=== PATIENT | male | born 1940 | race Caucasian/White ===

== ENCOUNTER 2019-01-18 19:37 | Observation (INO) ==
[2019-01-18] MEDS ORDERED: Aspirin 81 MG TAB.CHEW PO ONE (19:43)
[2019-01-18 20:06] LABS: Basophils % 0.2 %; Eosinophils # 0.1 K/mcL (0.0-0.6); Eosinophils % 1.6 %; Hematocrit 41.4 % (37.5-50.1); Hemoglobin 14.5 g/dL (12.9-16.9); Immature Granulocytes % 0.5 % (0-4); Lymphocytes # 2.3 K/mcL (0.6-4.6); Lymphocytes % 25.6 %; Mean Corpuscular Hemoglobin 30.3 pg (28.0-33.3); Mean Corpuscular Volume 86.6 fL (83.0-100.0); Mean Platelet Volume 8.6 fL (9.4-12.4); Monocytes # 0.9 K/mcL (0.0-1.3); Monocytes % 9.8 %; Neutrophils # 5.5 K/mcL (1.6-8.9); Platelet Count 176 K/mcL (140-400); Red Blood Count 4.78 M/mcL (4.19-5.50); Red Cell Distribution Width 12.8 % (11.5-14.5); Segmented Neutrophils % 62.3 %
[2019-01-18 20:14] LABS: Prothrombin Time 11.2 Seconds (9.4-12.1)
[2019-01-18 20:28] LABS: BUN/Creatinine Ratio 17 (6-26); Blood Urea Nitrogen 26 mg/dL (8-23); Calcium 9.5 mg/dL (8.6-10.3); Carbon Dioxide 21 mEq/L (23-29); Chloride 106 mEq/L (98-107); Glucose 109 mg/dL (70-105); Osmolality,Calculated 295 (280-300); Potassium 3.7 mEq/L (3.5-5.1); Sodium 140 mEq/L (136-145); eGFR For Non-African Americans 43 (> 60)
[2019-01-18 20:29] LABS: Troponin I < 0.03 ng/mL (< 0.04)
--- NOTE | 2019-01-18 20:55 | Emergency Department Note ---
Disposition Clinical Impression: Unstable angina Disposition: Admitted As Inpatient Condition: Fair Referrals: Rubens Churchill MD [Primary Care Provider] - Time of Disposition: 20:56 Chest Pain HPI - General Chief Complaint: ED Chest Pain Stated Complaint: Chest pain Time Seen by Provider: 01/18/19 19:42 Source: EMS Mode of arrival: ambulatory Limitations: no limitations Vital Signs Reviewed: Yes Nursing Notes Reviewed: Yes - History of Present Illness HPI Narrative: 78-year-old male presents to the emergency department complaining of chest pain. Does have history of ACS where he had a right coronary stent placed and [place] approximate one month ago. There is a tried to stand him here but were unable to due to not having the correct supplies and ability to be older do it here. He presented there with shortness of breath at that time. Today he s aid he got a sudden onset of substernal chest pain that began partially one hour prior to his arrival. He said he was mildly short of breath but that went away. Described the pain is 6 out of 10 throbbing chest pain radiating to his left arm. He said he did not exert himself he does not know if it is worse with exertion. He was not diaphoretic had mild nausea but no vomiting. Patient has had no fevers cough congestion. Otherwise there is no other complaints at this time. Severity scale (1-10): 1 - Related Data Home Medications Medication Instructions Recorded Confirmed DULoxetine [Cymbalta] 30 mg PO DAILY 10/23/16 12/02/18 Lisinopril [Zestril] 5 mg PO DAILY 10/23/16 12/02/18 Tramadol HCl [Ultram] 50 mg PO Q6H PRN 10/23/16 12/02/18 Aspirin [Lo-Dose Aspirin EC] 81 mg PO DAILY 08/16/18 12/02/18 Atorvastatin Calcium [Lipitor] 20 mg PO DAILY 11/08/18 12/02/18 Terazosin [Hytrin] 5 mg PO HS 11/08/18 12/02/18 Metoprolol Tartrate [Lopressor] 12.5 mg PO DAILY 11/13/18 12/10/18 PARoxetine HCl [Paroxetine HCl] 10 mg PO DAILY 11/13/18 12/02/18 Clopidogrel [Plavix] 75 mg PO DAILY 12/02/18 12/02/18 Magnesium Oxide [Magnesium] 250 mg PO DAILY 12/02/18 12/02/18 Nitroglycerin [Nitrostat] 0.4 mg SL PRN PRN 12/02/18 12/02/18 Allergies Allergy/AdvReac Type Severity Reaction Status Date / Time NSAIDS (Non-Steroidal AdvReac See Verified 11/13/18 08:42 Anti-Inflamma Comments All systems ED: reviewed and negative except as stated. Review of Systems: As Per HPI Chest Pain PMH - Past Medical History Medical history: Reports: arthritis, coronary artery disease, GERD, hyperlipidemia, hypertension, kidney stones, renal disease Surgical history: Reports: appendectomy, other Psychiatric history: Reports: no psych history - Social History Smoking Status: Former smoker Alcohol use: Reports: none Drug use: Reports: none Physical Exam - General Limitations: no limitations General appearance: alert - Head Head exam: atraumatic, normocephalic, normal inspection - Eye Eye exam: Present: normal appearance, PERRL, EOMI - ENT ENT exam: normal exam, normal oropharynx, mucous membranes moist - Neck Neck exam: Present: normal inspection, full ROM, trachea midline - Chest Chest inspection: Present: normal inspection, symmetric chest wall rise - Respiratory Respiratory exam: Present: normal lung sounds bilaterally. Absent: respiratory distress, wheezes, stridor, accessory muscle use - Cardiovascular Cardiovascular exam: Present: regular rate, normal rhythm, normal heart sounds - Abdominal Exam Abdominal exam: Present: soft, Non-Tender, normal bowel sounds. Absent: tenderness, distention, guarding, rebound, rigidity - Extremities Exam Extremities exam: Present: normal inspection, full ROM. Absent: tenderness, pedal edema - Back Exam Back exam: Present: normal inspection, full ROM. Absent: tenderness, CVA tenderness (R), CVA tenderness (L) - Neurological Exam Neurological exam: Present: alert, oriented X3 - Skin Skin exam: Present: warm, dry, intact, normal color Course Vital Signs Temperature 97.9 F 01/18/19 19:46 Pulse Rate 65 01/18/19 19:46 Respiratory Rate 18 01/18/19 19:46 Blood Pressure 107/53 01/18/19 19:46 O2 Sat by Pulse Oximetry 98 01/18/19 19:46 Temperature 97.9 F 01/18/19 19:46 Pulse Rate 67 01/18/19 20:18 Respiratory Rate 18 01/18/19 20:18 Blood Pressure 108/77 01/18/19 20:18 O2 Sat by Pulse Oximetry 96 01/18/19 20:18 Oxygen Delivery Oxygen Delivery Room Air Chest Pain - MDM Narrative Medical decision making narrative: Patient's troponin came back negative. EKG had no acute changes per chest x-ray no acute changes. Patient did have elevated creatinine but for around his baseline. Patient does have a heart score of 5 to the elevation in the heart score I feel more control with the patient coming in the hospital and getting further evaluation including possible echocardiogram and stress test. He also had a recent cardiac catheterization done so I think that also warrants admission. Patient did receive nitroglycerin as well as aspirin in the ambulance. He said after 2 nitroglycerin his chest pain was completely alleviated. I spoke with the hospitalist Dr. Parrish who agrees with admission to the hospital. Patient is admitted in stable condition. Chest X-Ray 01/18/19 19:43 IMPRESSION: No active cardiopulmonary disease D/ / Jaime Vu MD / Jaime Vu MD Interpreting Provider: Jaime Vu MD - Medical Records Medical records reviewed: Yes I reviewed the patient's medical records. - Lab Data Lab results reviewed: Yes I reviewed the patient's lab results. Result diagrams: 01/18/19 19:53 01/18/19 19:53 Lab Results 01/18/19 01/18/19 01/18/19 Range/Units 19:53 19:53 19:53 WBC 8.9 (4.3-11.1) K/mcL RBC 4.78 (4.19-5.50) M/mcL Hgb 14.5 (12.9-16.9) g/dL Hct 41.4 (37.5-50.1) % MCV 86.6 (83.0-100.0) fL MCH 30.3 (28.0-33.3) pg MCHC 35.0 (31.6-35.5) g/dL RDW 12.8 (11.5-14.5) % Plt Count 176 (140-400) K/mcL MPV 8.6 L (9.4-12.4) fL Immature Gran % 0.5 (0-4) % Seg Neutrophils % 62.3 % Lymphocytes % 25.6 % Monocytes % 9.8 % Eosinophils % 1.6 % Basophils % 0.2 % Neutrophils # 5.5 (1.6-8.9) K/mcL Lymphocytes # 2.3 (0.6-4.6) K/mcL Monocytes # 0.9 (0.0-1.3) K/mcL Eosinophils # 0.1 (0.0-0.6) K/mcL Basophils # 0.0 (0.0-0.2) K/mcL PT 11.2 (9.4-12.1) Seconds INR 1.0 APTT 32.0 (26.0-36.0) Seconds Sodium 140 (136-145) mEq/L Potassium 3.7 (3.5-5.1) mEq/L Chloride 106 (98-107) mEq/L Carbon Dioxide 21 L (23-29) mEq/L BUN 26 H (8-23) mg/dL Creatinine 1.56 H (0.70-1.30) mg/dL Est GFR ( Amer) 52 L (> 60) Est GFR (Non-Af Amer) 43 L (> 60) BUN/Creatinine Ratio 17 (6-26) Glucose 109 H (70-105) mg/dL Calculated Osmolality 295 (280-300) Calcium 9.5 (8.6-10.3) mg/dL Troponin I < 0.03 (< 0.04) ng/mL - Radiology Data Radiology results reviewed: Yes I reviewed the patient's radiology results. - EKG Data EKG attestation: Yes I reviewed and interpreted this EKG. EKG results narrative: EKG done at 1945 review myself and the attending shows sinus rhythm at a rate of 65, QRS 97, QTC 47. There is no acute ST changes no acute T-wave changes there is a first-degree AV block no other blocks or hypertrophy or heart strain. No WPW/Brugada/HOCM. EKG is unchanged when compared with old EKG done on 07/17/14. Heart Score - Score History: Moderately Suspicious EKG: Normal Age: Greater than 65 Risk Factors: Equal/Greater than 3 risk factor or history of atherosclerotic disease Troponin: Less than normal limit HEART Score Total: 5
--- NOTE | 2019-01-18 21:01 | Emergency Department Note ---
Disposition Clinical Impression: ACS (acute coronary syndrome) Disposition: Admitted As Inpatient General Adult HPI - General Chief complaint: ED Chest Pain Stated complaint: Chest pain Time Seen by Provider: 01/18/19 19:42 Source: patient, EMS Mode of arrival: ambulatory Limitations: no limitations Nursing Notes Reviewed: Yes Vital Signs Reviewed: Yes - History of Present Illness HPI Narrative: Attestation note: Patient was seen with the emergency medicine resident/nurse practitioner/physician senior underwriting assistant/transitional resident/medical student: Dr. Tuan Ge I have personally performed a face to face evaluation on this patient. I have reviewed and agree with history and physical examination patient management and disposition. Briefly the salient points of the case are as follows: 70-year-old male comes in with chest pain 100 stent placed at [facility] 15 of December and is undergoing cardiac rehabilitation his symptoms at that time presenting were dyspnea. Today there are chest pain and pressure 8 out of 10 which resolved with nitroglycerin and aspirin per EMS. EKG shows no acute ischemic changes we read by the sweet potato disintegrator lamination machine operator Dr. Thorne who agreed. Heart score is. Patient's troponin was negative patient will be admitted for chest pain ACS. We discussed case with the hospitalist patient accepted for admission in stable condition we have provided 30 minutes critical care service for this patient Pain Scale: 1 - Related Data Home Medications Medication Instructions Recorded Confirmed DULoxetine [Cymbalta] 30 mg PO DAILY 10/23/16 12/02/18 Lisinopril [Zestril] 5 mg PO DAILY 10/23/16 12/02/18 Tramadol HCl [Ultram] 50 mg PO Q6H PRN 10/23/16 12/02/18 Aspirin [Lo-Dose Aspirin EC] 81 mg PO DAILY 08/16/18 12/02/18 Atorvastatin Calcium [Lipitor] 20 mg PO DAILY 11/08/18 12/02/18 Terazosin [Hytrin] 5 mg PO HS 11/08/18 12/02/18 Metoprolol Tartrate [Lopressor] 12.5 mg PO DAILY 11/13/18 12/10/18 PARoxetine HCl [Paroxetine HCl] 10 mg PO DAILY 11/13/18 12/02/18 Clopidogrel [Plavix] 75 mg PO DAILY 12/02/18 12/02/18 Magnesium Oxide [Magnesium] 250 mg PO DAILY 12/02/18 12/02/18 Nitroglycerin [Nitrostat] 0.4 mg SL PRN PRN 12/02/18 12/02/18 Allergies Allergy/AdvReac Type Severity Reaction Status Date / Time NSAIDS (Non-Steroidal AdvReac See Verified 11/13/18 08:42 Anti-Inflamma Comments Past Medical History - Past Medical History Medical history: Reports: arthritis, coronary artery disease, GERD, hyperlipidemia, hypertension, kidney stones, renal disease Surgical history: Reports: appendectomy, other Psychiatric history: Reports: no psych history - Social History Smoking Status: Former smoker Smokeless Tobacco Status: No Alcohol use: Reports: none Drug use: Reports: none Physical Exam - General Limitations: no limitations General appearance: alert Course Vital Signs Temperature 97.9 F 01/18/19 19:46 Pulse Rate 65 01/18/19 19:46 Respiratory Rate 18 01/18/19 19:46 Blood Pressure 107/53 01/18/19 19:46 O2 Sat by Pulse Oximetry 98 01/18/19 19:46 Temperature 97.9 F 01/18/19 19:46 Pulse Rate 67 01/18/19 20:18 Respiratory Rate 18 01/18/19 20:18 Blood Pressure 108/77 01/18/19 20:18 O2 Sat by Pulse Oximetry 96 01/18/19 20:18 Oxygen Delivery Oxygen Delivery Room Air Medical Decision Making - Lab Data Result diagrams: 01/18/19 19:53 01/18/19 19:53 Lab Results 01/18/19 01/18/19 01/18/19 Range/Units 19:53 19:53 19:53 WBC 8.9 (4.3-11.1) K/mcL RBC 4.78 (4.19-5.50) M/mcL Hgb 14.5 (12.9-16.9) g/dL Hct 41.4 (37.5-50.1) % MCV 86.6 (83.0-100.0) fL MCH 30.3 (28.0-33.3) pg MCHC 35.0 (31.6-35.5) g/dL RDW 12.8 (11.5-14.5) % Plt Count 176 (140-400) K/mcL MPV 8.6 L (9.4-12.4) fL Immature Gran % 0.5 (0-4) % Seg Neutrophils % 62.3 % Lymphocytes % 25.6 % Monocytes % 9.8 % Eosinophils % 1.6 % Basophils % 0.2 % Neutrophils # 5.5 (1.6-8.9) K/mcL Lymphocytes # 2.3 (0.6-4.6) K/mcL Monocytes # 0.9 (0.0-1.3) K/mcL Eosinophils # 0.1 (0.0-0.6) K/mcL Basophils # 0.0 (0.0-0.2) K/mcL PT 11.2 (9.4-12.1) Seconds INR 1.0 APTT 32.0 (26.0-36.0) Seconds Sodium (136-145) mEq/L Potassium (3.5-5.1) mEq/L Chloride (98-107) mEq/L Carbon Dioxide (23-29) mEq/L BUN (8-23) mg/dL Creatinine (0.70-1.30) mg/dL Est GFR ( Amer) (> 60) Est GFR (Non-Af Amer) (> 60) BUN/Creatinine Ratio (6-26) Glucose (70-105) mg/dL Calculated Osmolality (280-300) Calcium (8.6-10.3) mg/dL Troponin I (< 0.04) ng/mL B-Natriuretic Peptide 35 (Less than 100) pg/mL 01/18/19 Range/Units 19:53 WBC (4.3-11.1) K/mcL RBC (4.19-5.50) M/mcL Hgb (12.9-16.9) g/dL Hct (37.5-50.1) % MCV (83.0-100.0) fL MCH (28.0-33.3) pg MCHC (31.6-35.5) g/dL RDW (11.5-14.5) % Plt Count (140-400) K/mcL MPV (9.4-12.4) fL Immature Gran % (0-4) % Seg Neutrophils % % Lymphocytes % % Monocytes % % Eosinophils % % Basophils % % Neutrophils # (1.6-8.9) K/mcL Lymphocytes # (0.6-4.6) K/mcL Monocytes # (0.0-1.3) K/mcL Eosinophils # (0.0-0.6) K/mcL Basophils # (0.0-0.2) K/mcL PT (9.4-12.1) Seconds INR APTT (26.0-36.0) Seconds Sodium 140 (136-145) mEq/L Potassium 3.7 (3.5-5.1) mEq/L Chloride 106 (98-107) mEq/L Carbon Dioxide 21 L (23-29) mEq/L BUN 26 H (8-23) mg/dL Creatinine 1.56 H (0.70-1.30) mg/dL Est GFR ( Amer) 52 L (> 60) Est GFR (Non-Af Amer) 43 L (> 60) BUN/Creatinine Ratio 17 (6-26) Glucose 109 H (70-105) mg/dL Calculated Osmolality 295 (280-300) Calcium 9.5 (8.6-10.3) mg/dL Troponin I < 0.03 (< 0.04) ng/mL B-Natriuretic Peptide (Less than 100) pg/mL
[2019-01-18] MEDS: Nitroglycerin 0.4 MG TAB.SUBL SL PRN ×2 (21:58→22:14)
[2019-01-18] MEDS ORDERED: *HR* Morphine 2 MG/ML SYRINGE IVP PRN (22:59)
[2019-01-18] MEDS ORDERED: Ondansetron 4 MG/2 ML VIAL IVP PRN (23:00)
[2019-01-18] MEDS ORDERED: Naloxone 0.4 MG/ML INJ IVP PRN (23:13)
[2019-01-18] MEDS ORDERED: 0.9 % Sodium Chloride 1,000 ML IVC SCH (23:15)
[2019-01-18] MEDS ORDERED: Baclofen 10 MG TABLET PO PRN (23:21)
[2019-01-18] MEDS ORDERED: *HR* Heparin 5,000 UNIT/ML VIAL SQ SCH (23:30)
--- NOTE | 2019-01-18 23:32 | Internal Med History&Physical ---
Date of Encounter: 01/18/19 Time of Encounter: 23:24 Internal Medicine - H&P: HPI Chief complaint: Chest Pain History of present illness: Mr. Delgado is a 78 year old male with a past medical history of recently diagnosed coronary artery disease status post stent placement in October, hypertension, hyperlipidemia, CKD and GERD who presented to the ED due to chest pain. Patient states that earlier in the evening after dinner he developed sudden onset chest pain described as a constricting squeezing feeling involving the left side of his chest and radiating to the right side, 6 out of 10 in intensity. Patient also began having shortness of breath, nausea and diaphore sis. Reports pain appears to be aggravated with deep inspiration and cough. Patient does endorse a 10 day history of upper respiratory tract symptoms consistent with a cold and has been having a productive cough. Patient recently underwent left heart catheter in October identifying severe 2 vessel disease. [place] the vessel and stent was placed to RCA. Since then patient reports compliance with his dual antiplatelet therapy. Patient denied any chest pain during previous admission, only reporting shortness of breath with exertion. He states that chest pain today is entirely new. Upon arrival patient was afebrile and hemodynamically stable. Vitals were stable. Initial laboratory workup was relatively unremarkable including a negative troponin. Creatinine was slightly elevated at 1.56 but appears to be near his baseline in the setting of chronic kidney disease. EKG showed normal sinus rhythm without evidence of ischemic changes. Chest pain reportedly resolved after nitroglycerin. On my assessment patient was again endorsing chest pain. He had just received another dose of sublingual nitroglycerin without improvement much improvement. He he also endorsed a throbbing headache involving the forehead and extending to the back of the neck associated with some photophobia. No prior history of migraines. In addition was complaining of neck pain aggravated with turning his neck side to side and with flexion. No reports of recent trauma Patient does endorse a history of chronic back pain but that this was new. A repeat EKG was unchanged. Past Med Surg Social Fam HX - Past Medical History Medical history: arthritis, coronary artery disease, GERD, hyperlipidemia, hypertension, kidney stones, renal disease Additional medical history: ANGINA. SLEEP APNEA CPAP. FORMER SMOKER Psychiatric history: no psych history - Past Surgical History Surgical History: appendectomy, other Additional surgical history: back. left knee. appendectomy - Social History Smoking Status: Former smoker Smokeless Tobacco Status: No Alcohol use: none Drug use: none - Family History Mother Living Status: Hx Family Cardiac Disorders: Yes (mother,father) Hx Family Respiratory Disorders: No Hx Family Cancer: No Hx Family GI Disorders: No Hx Family Endocrine Disorder: Yes (brother,) Hx Family Neuromuscular Disorders: No Hx Family Neurologic Disorders: Yes (brother) Hx Family HEENT Disorders: No Hx Family Autoimmune Disorders: No Internal Medicine - H&P: Meds DULoxetine [Cymbalta] 30 mg PO DAILY 10/23/16 [History] Lisinopril [Zestril] 5 mg PO DAILY 10/23/16 [History] Tramadol HCl [Ultram] 50 mg PO Q6H PRN 10/23/16 [History] Aspirin [Lo-Dose Aspirin EC] 81 mg PO DAILY 08/16/18 [History] Atorvastatin Calcium [Lipitor] 20 mg PO DAILY 11/08/18 [History] Terazosin [Hytrin] 5 mg PO HS 11/08/18 [History] Metoprolol Tartrate [Lopressor] 12.5 mg PO DAILY 11/13/18 [History] PARoxetine HCl [Paroxetine HCl] 10 mg PO DAILY 11/13/18 [History] Clopidogrel [Plavix] 75 mg PO DAILY 12/02/18 [History] Magnesium Oxide [Magnesium] 250 mg PO DAILY 12/02/18 [History] Nitroglycerin [Nitrostat] 0.4 mg SL PRN PRN 12/02/18 [History] Allergy/AdvReac Type Severity Reaction Status Date / Time NSAIDS (Non-Steroidal AdvReac See Verified 11/13/18 08:42 Anti-Inflamma Comments All Systems PM: A 10-system review of systems was performed and is negative for pertinent findings except as documented above in the HPI. - Constitutional Constitutional: no chills, no fever(s), no night sweats - EENT Eyes: no change in vision, no discharge, no pain, no photophobia Ears: no ear discharge, no ear pain, no tinnitus Nose, mouth and throat: no dysphagia, no nasal discharge, no neck pain, no sore throat - Cardiovascular Cardiovascular ROS IM: no chest pain, no diaphoresis, no dyspnea, no lightheadedness, no palpitations, no syncope - Respiratory Respiratory: no cough, no dyspnea, no wheezing, no excessive phlegm production - Gastrointestinal Gastrointestinal: no abdominal pain, no diarrhea, no hematemesis, no hematochezia, no melena, no nausea, no vomiting - Musculoskeletal Musculoskeletal ROS IM: no numbness, no tingling - Integumentary Integumentary IM: no rash, no unusual bruising - Neurological Neurological ROS: no confusion, no convulsions, no focal weakness, no numbness, no tingling, no tremor(s) - Hematologic/Lymphatic Hematologic/Lymphatic: no easy bruising - Constitutional Vitals: Temp Pulse Resp BP Pulse Ox 97.9 F 69 18 123/108 100 01/18/19 19:46 01/18/19 22:14 01/18/19 21:59 01/18/19 22:14 01/18/19 21:59 Exam: General: Alert and oriented 3 Skin:Normal color, no rash, no lesions. HEENT:EOM, pupils equal, round and reactive. Neck tender to palpation on the posterior aspect. Pain elicited with passive turning of the head. Cardiovascular:Normal S1 & S2, no rubs, murmurs or gallops. No JVD. Pulse regular. Lungs:Normal breath sounds, no wheezes or crackles. Abdomen:Soft, non-tender, no rigidity. Extremities:No deformity, no edema or tenderness, no joint swelling or clubbing. Neurological:Normal cognition and motor skills. Pulses:Carotid and radial pulses normal +2. Rest of the physical exam is non contributory Internal Med - H&P Results - Labs CBC & Chem 7: 01/19/19 02:14 01/18/19 19:53 Labs: Short CBC 01/18/19 Range/Units 19:53 WBC 8.9 (4.3-11.1) K/mcL Hgb 14.5 (12.9-16.9) g/dL Hct 41.4 (37.5-50.1) % Plt Count 176 (140-400) K/mcL Neutrophils # 5.5 (1.6-8.9) K/mcL BMP 01/18/19 19:53 Sodium 140 Potassium 3.7 Chloride 106 Carbon Dioxide 21 L BUN 26 H Creatinine 1.56 H Glucose 109 H Calcium 9.5 Cardiac Enzymes 01/18/19 Range/Units 19:53 Troponin I < 0.03 (< 0.04) ng/mL - Impressions ITS Impressions Chest X-Ray 01/18/19 19:43 IMPRESSION: No active cardiopulmonary disease D/ / Jaime Vu MD / Jaime Vu MD Interpreting Provider: Jaime Vu MD Soft Tissue Neck X-Ray 01/18/19 22:59 IMPRESSION: Normal neck soft tissues. D/ / Alex Echevarria MD / Alex Echevarria MD Interpreting Provider: Alex Echevarria MD - Assessment and Plan (1) Chest pain Current Visit: Yes Status: Acute Assessment and plan: Patient presenting with atypical chest pain occurring shortly after dinner described as a constricting sensation as if his chest is being squeezed; pain is 6 out of 10, left-sided radiating to the right side. Associated with nausea and shortness of breath. Pain nonreproducible to palpation though does report aggravation with deep inspiration. Patient underwent recent stent placement to the RCA in [facility] in mid October. Patient states that he did not have any angina-like symptoms back in October when he presented for dyspnea on exertion and underwent left heart catheter. Initial troponin negative. EKG did not show any significant changes from previous EKG. EKG was reviewed with by Dr. Thorne. Given atypical nature Patient was given a loading dose of aspirin. He is currently on dual antiplatelet therapy and has not missed any of his doses. Cardiology in agreement with continuing aspirin and trending troponin for now. Unlikely in-stent thrombosis. Differential includes unstable angina versus pleurisy in the setting of recent upper respiratory tract infection. -Telemetry -Trend troponin -Sublingual nitroglycerin/morphine as needed -Consider echocardiogram -Consult cardiology Qualifiers: Chest pain type: unspecified Qualified Code(s): R07.9 - Chest pain, unspecified (2) Headache Current Visit: Yes Status: Acute Assessment and plan: Patient reports pulsatile headache extending from the 4 head to the back of the neck described as pounding and associated with nausea and some photophobia. Patient denies any previous history of migraines. Etiology may be secondary to nitroglycerin. We will continue with pain control for patient's chest pain with morphine and monitor for any improvement. We will consider Excedrin as needed if symptoms do not improve. Qualifiers: Headache type: unspecified Headache chronicity pattern: acute headache Intractability: not intractable Qualified Code(s): R51 - Headache (3) Neck pain Current Visit: Yes Status: Acute Assessment and plan: Patient reporting acute onset neck pain that appears to be spastic in nature aggravated with rotating of the head and with flexion; symptoms occurred shortly after arriving to the floor. Patient had tenderness to palpation on the posterior aspect of the neck. No reports of trauma. Patient has no fever or leukocytosis. Chronic history of back pain. This appears to be musculoskeletal in etiology. We will nonetheless obtain a x-ray of the neck. Pain control. We will start patient on baclofen. (4) CAD (coronary artery disease) Current Visit: Yes Status: Acute Assessment and plan: Recently diagnosed coronary artery disease with stent placement to the RCA. Left heart catheter here at [facility] in October and demonstrated severe 2 vessel disease with 80% stenosis of the proximal RCA and 75% stenosis in the mid first diagonal. Patient sent up to [facility] where stent was placed to RCA. Patient currently on beta damaris, statin and antiplatelet therapy. EF at the time 55%. Continue medical management. Qualifiers: Associated angina: angina presence unspecified Qualified Code(s): I25.10 - Atherosclerotic heart disease of [place] coronary artery without angina pectoris (5) RICH (obstructive sleep apnea) Current Visit: Yes Status: Acute Assessment and plan: History of RICH on CPAP at night. We will provide patient with CPAP this evening (6) Acute kidney injury Current Visit: Yes Status: Acute Assessment and plan: Mild elevation in creatinine currently at 1.56. Baseline appears to be near 1.3-1.4. Patient does have history of CKD. We will give 1 L of gentle hydration at 75 mL an hour and reassess in the morning. (7) DVT prophylaxis Current Visit: Yes Status: Acute Assessment and plan: Subcutaneous heparin - Time Spent With Patient Total time spent is greater than 50% in coordination of care (as documented) at patient's floor/unit and/or counseling patient:
[2019-01-19] MEDS: Acetaminophen/Aspirin/Caffeine TABLET PO PRN ×2 (00:14→09:03)
[2019-01-19] MEDS: Melatonin 3 MG TABLET PO PRN ×2 (03:41→22:41)
[2019-01-19] MEDS: *HR* Heparin 5,000 UNIT/ML VIAL SQ SCH ×3 (06:18→21:21)
[2019-01-19 06:53] LABS: Basophils % 0.2 %; Eosinophils % 0.5 %; Hematocrit 40.6 % (37.5-50.1); Hemoglobin 13.6 g/dL (12.9-16.9); Immature Granulocytes % 0.2 % (0-4); Lymphocytes # 0.7 K/mcL (0.6-4.6); Lymphocytes % 8.6 %; Mean Corpuscular HGB Conc 33.5 g/dL (31.6-35.5); Mean Corpuscular Hemoglobin 30.1 pg (28.0-33.3); Mean Corpuscular Volume 89.8 fL (83.0-100.0); Monocytes # 0.8 K/mcL (0.0-1.3); Monocytes % 9.3 %; Neutrophils # 6.7 K/mcL (1.6-8.9); Platelet Count 148 K/mcL (140-400); Red Blood Count 4.52 M/mcL (4.19-5.50); Segmented Neutrophils % 81.2 %
[2019-01-19 08:45] LABS: Albumin/Globulin Ratio 2.4 (1.1-2.2); Bilirubin,Total 1.9 mg/dL (0.3-1.0); Calcium 9.6 mg/dL (8.6-10.3); Globulin 1.7 g/dL (2.4-3.5); Potassium 4.2 mEq/L (3.5-5.1); Total Protein 5.7 g/dL (6.4-8.9)
--- NOTE | 2019-01-19 08:46 | Cardiology Consult Note ---
Date of Encounter: 01/19/19 Time of Encounter: 09:00 Assessment and Plan (1) Chest pain Current Visit: Yes Status: Acute -Patient presented to the hospital with the substernal chest pain that was non- radiating in nature that started yesterday evening after dinner. -He recently had a LHC with JESSICA placed to his RCA for his two-vessel disease at the [facility] . He had calcified lesion of the RCA and was sent to [place] for a possible rotablation but eventually didn't need it. -Has risk factors that predisposes him to acute coronary syndrome-like, hypertension, hyperlipidemia and RICH. -EKG on this admission was negative for any ischemic changes. -Troponins have been negative and admission. BNP was 35. -Patient is on DAPT at home, takes Lopressor 12.5 mg daily and lisinopril for antihypertensive control. -He was given a total of sublingual nitroglycerin while in the ED resolution of chest pain while there although he does endorse mild chest pain when I saw him this morning. -Patient's most recent echocardiogram showed an LVEF of 65% with mild concentric left ventricular hypertrophy PLAN: -With his ongoing chest pain, he will get a diagnostic left heart catheterization to rule out evidence of new/worsening coronary occlusion Qualifiers: Chest pain type: unspecified Qualified Code(s): R07.9 - Chest pain, unspecified Discussion w patient/family: The assessment and plan as outlined above was discussed with the patient and/or family members who expressed understanding and agreement. All questions were answered. Thank you for involving us in the care of your patient. Please call with any questions. History of Present Illness Consult date: 01/19/19 History of present illness: Mr. Delgado is a 78 year old male with a past medical history of hypertension, hyperlipidemia, status post PCI about a month ago (at the [facility]) who presents to the ED with several substernal pain that started yesterday evening after dinner. Patient endorses a pain of 6 out of 10 when in the ER was given 2 sublingual nitroglycerin with resolution of chest pain. Patient endorses no diaphoresis, nausea, vomiting, fevers, although he does endorse chronic dry cough for the last couple days. Of note patient has been taking lisinopril for his blood pressure control but he has been taking it for a long long time. He is currently on aspirin and Plavix s/p PCI with JESSICA to his RCA. Patient is also on low-dose Lopressor 12.5 mg daily. He endorses that his dose of Lopressor was recently reduced because patient was endorsing a lot of dizziness . Initial workup in the ED showed the patient's troponins were negative. EKG was so negative for any ST-T changes or LVH. It did show supraventricular rhythm but no evidence of A. fib, flutter WPW. Patient was given 2 sublingual nitro glycerin was admitted to the hospital for management. Past Med Surg Social Fam HX - Past Medical History Medical history: arthritis, coronary artery disease, GERD, hyperlipidemia, hypertension, kidney stones, renal disease Additional medical history: ANGINA. SLEEP APNEA CPAP. FORMER SMOKER Psychiatric history: no psych history - Past Surgical History Surgical History: appendectomy, other Additional surgical history: back. left knee. appendectomy - Social History Smoking Status: Former smoker Smokeless Tobacco Status: No Alcohol use: occasionally Drug use: none - Family History Mother Living Status: Hx Family Cardiac Disorders: Yes (mother,father) Hx Family Respiratory Disorders: No Hx Family Cancer: No Hx Family GI Disorders: No Hx Family Endocrine Disorder: Yes (brother,) Hx Family Neuromuscular Disorders: No Hx Family Neurologic Disorders: Yes (brother) Hx Family HEENT Disorders: No Hx Family Autoimmune Disorders: No Medications and Allergies DULoxetine [Cymbalta] 30 mg PO DAILY 10/23/16 [History] Lisinopril [Zestril] 5 mg PO DAILY 10/23/16 [History] Tramadol HCl [Ultram] 50 mg PO DAILY PRN 10/23/16 [History] Aspirin [Lo-Dose Aspirin EC] 81 mg PO DAILY 08/16/18 [History] Terazosin [Hytrin] 5 mg PO HS 11/08/18 [History] Metoprolol Tartrate [Lopressor] 12.5 mg PO DAILY 11/13/18 [History] PARoxetine HCl [Paroxetine HCl] 10 mg PO DAILY 11/13/18 [History] Clopidogrel [Plavix] 75 mg PO DAILY 12/02/18 [History] Magnesium Oxide [Magnesium] 250 mg PO DAILY 12/02/18 [History] Nitroglycerin [Nitrostat] 0.4 mg SL PRN PRN 12/02/18 [History] Atorvastatin Calcium [Lipitor] 80 mg PO DAILY 01/19/19 [History] Allergy/AdvReac Type Severity Reaction Status Date / Time NSAIDS (Non-Steroidal AdvReac See Verified 01/19/19 13:03 Anti-Inflamma Comments All Systems Review: The remainder of the systems were reviewed and are negative - Constitutional Constitutional: no fatigue - Cardiovascular Cardiovascular: chest pain at rest - Respiratory Respiratory: cough - Gastrointestinal Gastrointestinal: no abdominal pain Physical Examination Vital Signs, Last 4 Hours Temp Pulse Resp BP Pulse Ox 01/19/19 08:01 98.0 F 59 15 135/66 96 Other: Gen.: Vitals noted. No acute distress. Alert, awake and oriented * 3 [address], [address], and time, well developed, well-nourished resting comfortably in bed. Pleasant. HEENT: oropharynx clear, Normocephalic, atraumatic, MMM Neck: supple, no JVD, no lymphadenopathy, no carotid bruit. Cardiac: RRR, no murmur, +S1/S2, No BLE edema, PMI non-displaced Pulmonary: CTA bilaterally, no wheezes, rales or rhonchi, equal chest expansion, unlabored breathing Abdomen: soft, nontender, BS noted, no guarding, non- distended. No organomegaly, no pulsatile masses, Skin: warm and dry, no visible lesions. Feels warm, clammy, no rashes, no lesions, no erythema MSK: ROM not assessed. no joint swelling noted, gait not assessed while in bed. Non tender calf or clubbing, no cyanosis/clubbing/ or edema Neuro: A&O, moves all extremities, no focal deficits, sensation intact Psych: Appropriate mood and behavior, normal speech, Results 01/19/19 02:14 01/19/19 06:41 Lab Results 01/18/19 01/18/19 01/18/19 19:53 19:53 19:53 WBC 8.9 Hgb 14.5 Hct 41.4 Plt Count 176 INR 1.0 APTT 32.0 Sodium Potassium Chloride Carbon Dioxide BUN Creatinine Glucose Calcium Total Bilirubin AST ALT Alkaline Phosphatase Troponin I B-Natriuretic Peptide 35 01/18/19 01/19/19 01/19/19 19:53 02:14 06:41 WBC 8.3 Hgb 13.6 Hct 40.6 Plt Count 148 INR APTT Sodium 140 Potassium 3.7 Chloride 106 Carbon Dioxide 21 L BUN 26 H Creatinine 1.56 H Glucose 109 H Calcium 9.5 Total Bilirubin AST ALT Alkaline Phosphatase Troponin I < 0.03 < 0.03 B-Natriuretic Peptide 01/19/19 06:41 WBC Hgb Hct Plt Count INR APTT Sodium 138 Potassium 4.2 Chloride 105 Carbon Dioxide 26 BUN 25 H Creatinine 1.52 H Glucose 111 H Calcium 9.6 Total Bilirubin 1.9 H AST 723 H ALT 699 H Alkaline Phosphatase 147 H Troponin I B-Natriuretic Peptide Consult Discharge Plan - Plan Referrals: Rubens Churchill MD [Primary Care Provider] - 01/23/19 10:15 am
[2019-01-19] MEDS: Aspirin Enteric Coated 81 MG Tablet PO SCH (09:01)
[2019-01-19] MEDS: MAGNESIUM OXIDE 250 MG PO SCH (09:02)
--- NOTE | 2019-01-19 10:18 | Internal Med Progress Note ---
Hospitalist Progress Note - Encounter Date of Encounter: 01/19/19 Time of Encounter: 10:16 - Subjective Interval History: Patient was seen and examined in room. He has no chest pain currently but reported headache and neck pain after received nitroglycerin. He also reported occasional cough and recent up URI. He has no shortness of breath, palpitation, or lightheadedness. - Exam Vitals: Temp Pulse Resp BP Pulse Ox 98.0 F 59 15 135/66 96 01/19/19 08:01 01/19/19 08:01 01/19/19 08:01 01/19/19 08:01 01/19/19 08:01 Exam: General: Alert and oriented 3 Skin:Normal color, no rash, no lesions. HEENT:EOM, pupils equal, round and reactive. Neck tender to palpation on the posterior aspect. Pain elicited with passive turning of the head. Cardiovascular:Normal S1 & S2, no rubs, murmurs or gallops. No JVD. Pulse regular. Lungs:Normal breath sounds, no wheezes or crackles. Abdomen:Soft, non-tender, no rigidity. Extremities:No deformity, no edema or tenderness, no joint swelling or clubbing. Neurological:Normal cognition and motor skills. Pulses:Carotid and radial pulses normal +2. Rest of the physical exam is non contributory - Assessment and Plan (1) Chest pain Current Visit: Yes Status: Acute Assessment and Plan: 01/18 Patient presenting with atypical chest pain occurring shortly after dinner described as a constricting sensation as if his chest is being squeezed; pain is 6 out of 10, left-sided radiating to the right side. Associated with nausea and shortness of breath. Pain nonreproducible to palpation though does report aggravation with deep inspiration. Patient underwent recent stent placement to the RCA in [place] back in mid October. Patient states that he did not have any angina-like symptoms back in October when he presented for dyspnea on exertion and underwent left heart catheter. Initial troponin negative. EKG did not show any significant changes from previous EKG. EKG was reviewed with by Dr. Thorne. Given atypical nature Patient was given a loading dose of aspirin. He is currently on dual antiplatelet therapy and has not missed any of his doses. Cardiology in agreement with continuing aspirin and trending troponin for now. Unlikely in-stent thrombosis. Differential includes unstable angina versus pleurisy in the setting of recent upper respiratory tract infection. -Telemetry -Trend troponin -Sublingual nitroglycerin/morphine as needed -Consider echocardiogram -Consult cardiology. And currently chest pain-free. First set of troponin was negative. We will continue cycling troponin. Pending stress test and echocardiogram. Cardiology consult, appreciate help. (2) Headache Current Visit: Yes Status: Acute Assessment and Plan: Etiology may be secondary to nitroglycerin. (3) Neck pain Current Visit: Yes Status: Acute Assessment and Plan: Same as above. (4) RICH (obstructive sleep apnea) Current Visit: Yes Status: Acute Assessment and Plan: History of RICH on CPAP at night. (5) CAD (coronary artery disease) Current Visit: Yes Status: Acute Assessment and Plan: Recently diagnosed coronary artery disease with stent placement to the RCA. Left heart catheter here at [facility] in October and demonstrated severe 2 vessel disease with 80% stenosis of the proximal RCA and 75% stenosis in the mid first diagonal. Patient sent up to [facility] where stent was placed to RCA. Patient currently on beta damaris, statin and antiplatelet therapy. EF at the time 55%. Continue medical management. (6) CKD (chronic kidney disease) Current Visit: No Status: Chronic Assessment and Plan: Creatinine at the baseline, continue monitoring. (7) DVT prophylaxis Current Visit: Yes Status: Acute Assessment and Plan: Subcutaneous heparin - Time Spent with Patient Total time spent is greater than 50% in coordination of care (as documented) at patient's floor/unit and/or counseling patient: Greater than 35 minutes Plan of Care Discussed with: patient Internal Medicine: Result - Labs CBC & Chem 7: 01/19/19 02:14 01/19/19 06:41 Labs: Short CBC 01/18/19 01/19/19 Range/Units 19:53 02:14 WBC 8.9 8.3 (4.3-11.1) K/mcL Hgb 14.5 13.6 (12.9-16.9) g/dL Hct 41.4 40.6 (37.5-50.1) % Plt Count 176 148 (140-400) K/mcL Neutrophils # 5.5 6.7 (1.6-8.9) K/mcL BMP 01/18/19 01/19/19 19:53 06:41 Sodium 140 138 Potassium 3.7 4.2 Chloride 106 105 Carbon Dioxide 21 L 26 BUN 26 H 25 H Creatinine 1.56 H 1.52 H Glucose 109 H 111 H Calcium 9.5 9.6 Cardiac Enzymes 01/18/19 01/19/19 Range/Units 19:53 06:41 Troponin I < 0.03 < 0.03 (< 0.04) ng/mL Liver Function 01/19/19 Range/Units 06:41 Total Bilirubin 1.9 H (0.3-1.0) mg/dL AST 723 H (13-39) Units/L ALT 699 H (7-52) Units/L Alkaline Phosphatase 147 H (34-104) Units/L Albumin 4.0 (3.5-5.7) g/dL - ABG Interpretation ABG results: PT/INR, D-dimer PT 11.2 Seconds (9.4-12.1) 01/18/19 19:53 - Impressions Impressions Chest X-Ray 01/18/19 19:43 IMPRESSION: No active cardiopulmonary disease D/ / Jaime Vu MD / Jaime Vu MD Interpreting Provider: Jaime Vu MD Soft Tissue Neck X-Ray 01/18/19 22:59 IMPRESSION: Normal neck soft tissues. D/ / Alex Echevarria MD / Alex Echevarria MD Interpreting Provider: Alex Echevarria MD Consult Discharge Plan - Plan Referrals: Rubens Churchill MD [Primary Care Provider] - 01/23/19 10:15 am (1) Chest pain Qualifiers: Chest pain type: unspecified Qualified Code(s): R07.9 - Chest pain, unspecified (2) Headache Qualifiers: Headache type: unspecified Headache chronicity pattern: acute headache Intractability: not intractable Qualified Code(s): R51 - Headache (5) CAD (coronary artery disease) Qualifiers: Associated angina: angina presence unspecified Qualified Code(s): I25.10 - Atherosclerotic heart disease of [place] coronary artery without angina pectoris (6) CKD (chronic kidney disease) Qualifiers: Chronic kidney disease stage: stage 3 (moderate) Qualified Code(s): N18.3 - Chronic kidney disease, stage 3 (moderate)
--- NOTE | 2019-01-19 10:25 | Electrocardiograph Report ---
[address] [address] Test Date: 2019-01-18 Pat Name: Donal Delgado Department: [id number] Room: 3B39 Gender: M Travel Cota: : 1940 Requested By: Brandon Diaz Order Number: [id number] Reading MD: Gamaliel Morris Measurements Intervals [place] Rate: 65 P: ME: QRS: 58 QRSD: 97 T: 52 QT: 391 QTc: 407 Interpretive Statements Sinus rhythm Electronically Signed On 01-19-2019 10:23:42 EDT by Gamaliel Morris
--- NOTE | 2019-01-19 10:26 | Electrocardiograph Report ---
[address] [address] Test Date: 2019-01-18 Pat Name: Donal Delgado Department: 113 Room: 3B39 Gender: M Offset Press Assistant: : 1940 Requested By: Kim Pardo Order Number: [id number] Reading MD: Gamaliel Morris Measurements Intervals [place] Rate: 71 P: AR: 0 QRS: 41 QRSD: 98 T: 37 QT: 369 QTc: 392 Interpretive Statements Sinus rhythm Electronically Signed On 01-19-2019 10:24:50 EDT by Gamaliel Morris
--- NOTE | 2019-01-19 13:01 | Event Note ---
Date of Encounter: 01/19/19 Time of Encounter: 12:53 Patient seen and examined with resident physician. Recent LHC at [place], followed by PCI at [facility]. Presents with acute onset chest pain last evening. Symptoms started 30 minutes after eating but persisted for several hours. Describes as a chest aching/pressure sensation, improved after a few NTGs, but returned. Reports a few hours of discomfort overnight while resting in hospital bed. LVEF preserved per TTE report. Prior LHC from [place] reviewed. Recommend obtain [facility] records. Discussed options with patient. Given recurrent and persistent symptoms through the night, we discussed the R/B/A to a diagnostic LHC. Patient and family voiced understanding, wish to proceed. Further recommendations to follow. Thanks, Gamaliel Morris DO, FACC
[2019-01-19] MEDS ORDERED: Nitroglycerin 1,000 MCG/10 ML VIAL IV ONE (14:42)
[2019-01-19] MEDS ORDERED: *HR* Heparin 10,000 UNIT/10 ML VIAL ONE (14:42)
[2019-01-19] MEDS ORDERED: Heparin 1,000 UNITS/500 mL 500 ML ONE (14:42)
[2019-01-19] MEDS ORDERED: ISOVUE-370 200 ML INFUS..BTL ONE ×2 (14:42→15:48)
[2019-01-19] MEDS ORDERED: 0.9 % Sodium Chloride 1,000 ML ONE (14:42)
[2019-01-19] MEDS ORDERED: *HR* FentaNYL (PF) 100 MCG/2 ML VIAL ONE (15:01)
[2019-01-19] MEDS ORDERED: *HR* Midazolam HCl 2 MG/2 ML VIAL ONE ×2 (15:01→15:22)
--- NOTE | 2019-01-19 15:09 | Pre-Sedation Evaluation ---
Pre-sedation evaluation - Pre-sedation checklist Date of procedure: 01/19/19 Procedure: [facility] Recent Vitals: Last Vital Signs Temp 98.5 F 01/19/19 11:54 Pulse 52 01/19/19 11:54 Resp 16 01/19/19 11:54 BP 108/64 01/19/19 11:54 Pulse Ox 97 01/19/19 11:54 H&P (including ROS) documented in medical record: Yes Previous reaction to sedatives/anesthetics: No Dietary Status: NPO after Midnight Dentition: No loose teeth or bridges ASA Classification *see protocol: CLASS II-Mild systemic disease Plan of Care: Pt appropriate candidate for procedure/moderate/conscious sedation, Risks/benefits of procedure/sedation discussed w/ patient/family Cardiac Registry (Cardio Only) - Functional Capacity Functional Capacity: >=4 METS with symptoms - Clincal Frailty Scale Clinical Frailty Scale: Managing Well
[2019-01-19] MEDS ORDERED: Verapamil 5 MG/2 ML VIAL ONE (15:15)
--- NOTE | 2019-01-19 15:57 | Event Note ---
Date of Encounter: 01/19/19 Time of Encounter: 16:00 - Cardiology Event Note Patent RCA stent. Severe small vessel disease of diagonal. EF normal. Continue medical management. EF normal.
--- NOTE | 2019-01-19 16:09 | Invasive Diagnostic Lab Proc ---
Name: Donal Delgado Date of Study: 01/19/2019 Date: 1940 Ht: 70.1in Medical Record#: [id number] Age: 78 Wt: 235.89lb Gender: Male BSA: 2.24 Order #: [id number] BMI: 33.77 Physicians Procedure Physician: Von Thorne MD, [facility] Referring MD: Referring MD: Staff Name Position Time In Michell Sanabria RN Monitor 03:04 PM Law Lal RN Equine Pharmacology Technician 03:04 PM Anali Sawyer RT Scrub 03:04 PM Indications Indication Unstable Angina Procedures Performed Procedure L HRT ARTERY/VENTRICLE ANGIO Pre-Procedure Checklist Informed consent is complete signed and on chart. H&P is on chart. ID band is on and ID verified with patient. Patient NPO for procedure The procedure was described for the patient and questions were answered. ECG is on chart. Plan of Care Patient will tolerate the procedure without complications. Adequate level of comfort will be maintained. Hemodynamics will remain stable Patient will recover from procedure without complications. Respiratory function will be maintained. Cardiac rhythm will remain stable. Patient temperature will be maintained. Patient and/or family have verbalized understanding of the procedure. Patient Education Chief Complaint/Reason for Test: Cardiac Cath Developmental Category: Geriatric (65+ years) Developmentally Appropriate for Age: Yes Learning Barriers: None Education Needs: Procedure Education Method: Verbal Information Taught: Cardiac Cath Educational Evaluation: Able to repeat information Allergies NSAIDS (Non-Steroidal Anti-Inflamma Vital Signs Time BP (mmHg) HR (bpm) O2 Sat. RR (bpm) LOC 03:04 PM / % 5 = Fully awake and oriented or at pre-proc level 03:04 PM / % 4 = Oriented but drowsy 03:28 PM / % 4 = Oriented but drowsy 03:28 PM / % 4 = Oriented but drowsy 03:09 PM 127 / 70 55 99 % 11 03:13 PM 125 / 64 58 89 % 12 03:19 PM 126 / 66 57 95 % 16 03:23 PM 135 / 100 57 95 % 17 03:28 PM 127 / 95 58 91 % 22 03:33 PM 109 / 54 60 89 % 23 03:38 PM 100 / 51 60 92 % 23 03:43 PM 115 / 62 58 93 % 10 03:48 PM 115 / 60 59 90 % 15 Procedural Medications Time Medication Dose Units Method Given By 03:04 PM Oxygen 2 L/min nasal cannula Law Lal RN 03:15 PM Versed 2 mg Intravenous Law Lal RN 03:15 PM Fentanyl 50 mcg Intravenous Law Lal RN 03:24 PM Versed 1 mg Intravenous Law Lal RN 03:24 PM Fentanyl 25 mcg Intravenous Law Lal RN 03:27 PM Lidocaine 2% 0.5 ml Subcutaneous Von Thorne MD, FACC 03:29 PM Heparin 4000 units Nitroglycerin 200 mcg Verapamil 2.5 mg Intraarterial Von Thorne MD, FACC 03:42 PM Versed 1 mg Intravenous Law Lal RN 03:42 PM Fentanyl 25 mcg Intravenous Law Lal RN ASA Classification: CLASS II- Mild systemic disease (i.e. well-controlled diabetes, hypertension, asthma, cigarette smoking) Naeem Score Preprocedure Postprocedure Activity 2- Moves 4 extremities sustained head lift Activity 2- Moves 4 extremities sustained head lift Circulation 2- SBP +/= 20 points of pre-anesthetic level Circulation 2- SBP +/= 20 points of pre-anesthetic level Consciousness 2- Awake and alert oriented x 3 Consciousness 2- Awake and alert oriented x 3 O2 Saturation 2- Able to maintain O2 satruation of 92% on room air O2 Saturation 2- Able to maintain O2 satruation of 92% on room air Respiratory 2- Able to deep breathe and cough well Respiratory 2- Able to deep breathe and cough well Total Score 10 Total Score 10 Contrast Agent: Isovue Diagnostic Contrast: 132 ml Total Contrast: 132 ml Fluoro Dose: 53 mGy Procedure Log Time Note Enter By 03:00 PM CathStat 03:04 PM 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 Informed consent was obtained. 03:04 PM Procedure start 15:04 03:04 PM Time: 15:04 Oxygen on at 2 L/min per nasal cannula by Law Lal RN marah 03:04 PM Time: 15:04 Patient comfortable and pain free: Yes all 03:04 PM Time: 15:04LOC: 5 = Fully awake and oriented or at pre-proc level kkall 03:05 PM Hair removed from procedure site in procedure lab using clippers. Right wrist and Right groin prepped with Chloraprep by Law Lal RN, then patient was draped. Skin intact. kkall 03:05 PM [ Start or Stop Vital ] 03:08 PM Vitals capture started with the following parameters, Patient=Adult, Interval=5 min, Initial Irceckkx=094 mmHg, Deflation Rate=5 mmHg, Cuff placed on Left Arm 03:09 PM HR=55 bpm, TBKV=650/70 mmhg, SpO2=99.0 %, Resp=11 B/min 03:11 PM ASA Class CLASS II- Mild systemic disease (i.e. well-controlled diabetes, hypertension, asthma, cigarette smoking) [facility] PM Recorded ECG: HR=56 Condition=Condition 1 03:13 PM HR=58 bpm, ZQKA=693/64 mmhg, SpO2=89.0 %, Resp=12 B/min, EtCO2=23 mmHg 03:15 PM Time: 15:15 Versed 2 mg Intravenous Given by Law Lal RN 03:15 PM Time: 15:15 Fentanyl 50 mcg Intravenous Given by Law Lal RN 03:19 PM HR=57 bpm, ZKJX=480/66 mmhg, SpO2=95.0 %, Resp=16 B/min, EtCO2=24 mmHg 03:21 PM Pressure channel 1 zeroed. 03:21 PM Time: 15:04LOC: 4 = Oriented but drowsy carolyn 03:22 PM Time: 15:04 Patient comfortable and pain free: Yes carolyn 03:23 PM HR=57 bpm, LAZA=325/100 mmhg, SpO2=95.0 %, Resp=17 B/min 03:24 PM Time: 15:24 Versed 1 mg Intravenous Given by Law Lal RN 03:24 PM Time: 15:24 Fentanyl 25 mcg Intravenous Given by Law Lal RN [facility] 03:27 PM Time out was performed according to hospital policy. Conscious sedation and anesthesia was achieved (see medication log with in this report above) 03: PM Time: 15: 0.5 ml Lidocaine 2% to right radial Subcutaneous Given by Von Thorne MD, [facility] 03: PM HR=58 bpm, ADVE=210/95 mmhg, SpO2=91.0 %, Resp=22 B/min, EtCO2=35 mmHg 03: PM Time: 15:28 Patient comfortable and pain free: Yes [email or web address] : PM Time: 15:28LOC: 4 = Oriented but drowsy [email or web address] 03:29 PM Access obtained by percutaneous puncture. 6Fr 10cm Terumo Glidesheath sheath placed in right Radial artery. [id number] allner 03:29 PM Time: 15:29 Patient given 4,000 units Heparin, 200 mcg Nitroglycerin, and 2.5 mg Verapamil Intraarterial by Von Thorne MD, [facility]. This is given to reduce risk of vessel spasm and thrombosis. [email or web address] 03:29 PM 0.035 260cm Navilyst 3mmJ wire [id number] kkallner 03:29 PM 5Fr TIG catheter inserted over the wire [facility] kkallner 03:30 PM wire removed kkallner 03:30 PM LCA angiography performed in multiple views. mm 03:30 PM Recorded Pressure: Ao, HR=60, Condition=Condition 1 (Aorta) Ao 81/50/64 03:30 PM Pressure channel 1 zero failed. 03:30 PM Pressure channel 1 zeroed. 03:31 PM Recorded Pressure: Ao, HR=61, Condition=Condition 1 (Aorta) Ao 91/59/75 03:31 PM Recorded Pressure: Ao, HR=59, Condition=Condition 1 (Aorta) Ao 93/62/76 03:33 PM RCA angiography performed in one view, difficulty engaging [facility] 03:33 PM Recorded Pressure: Ao, HR=59, Condition=Condition 1 (Aorta) Ao 94/64/79 03:33 PM HR=60 bpm, MITD=712/54 mmhg, SpO2=89.0 %, Resp=23 B/min, EtCO2=30 mmHg 03:34 PM Catheter removed tsoumm 03:36 PM Lesion found in Distal LMCA. Pre Stenosis: 15 Pre SYLVESTER Flow: tsoummers 03:36 PM Left Main Coronary Artery with 15% stenosis tsoummers 03:37 PM 5Fr 3DRC catheter inserted over the wire [id number] tsoummers 03:38 PM Lesion found in 1st Diagonal. Pre Stenosis: 80 Pre SYLVESTER Flow: tsoummers 03:38 PM Mid/Distal Left Anterior Descending Coronary Artery and diagonal branches with 80% stenosis. If graft is supplying this area, 0 % stenosis tsoummers 03:38 PM HR=60 bpm, RBPJ=189/51 mmhg, SpO2=92.0 %, Resp=23 B/min 03:39 PM Catheter crossed the aortic valve and was selectively placed in the left ventricle. Pressures recorded on pullback for left heart catheterization. [email or web address] 03:39 PM Bolus angiogram of left Ventricle complete: 10 ml/sec for a total of 30 mls [email or web address] 03:39 PM Recorded Pressure: LV, HR=59, Condition=Condition 1 (Left Ventricle) LV 109/13/25 03:39 PM Recorded Pressure: LV, Ao, HR=60, Condition=Condition 1 (Left Ventricle) LV 111/11/25, (Aorta) Ao 100/60/79 03:40 PM Catheter removed haider 03:40 PM 5Fr AR 1 catheter inserted over the wire [id number] oummseverino 03:42 PM Time: 15:42 Versed 1 mg Intravenous Given by Law Lal RN 03:42 PM Time: 15:42 Fentanyl 25 mcg Intravenous Given by Law Lal RN 03:43 PM HR=58 bpm, CJRN=356/62 mmhg, SpO2=93.0 %, Resp=10 B/min, EtCO2=30 mmHg 03:44 PM Time: 15:28LOC: 4 = Oriented but drowsy haider 03:44 PM Time: 15:28 Patient comfortable and pain free: Yes [email or web address] 03:45 PM Catheter removed haider 03:46 PM 5Fr FR 4 catheter inserted over the wire DNC haider 03:48 PM Coronary Dominance: right [email or web address] 03:48 PM RCA angiography performed in multiple views. tsoumm 03:48 PM HR=59 bpm, JUIX=210/60 mmhg, SpO2=90.0 %, Resp=15 B/min 03:49 PM Catheter removed mm 03:50 PM Lesion found in Proximal RCA. Pre Stenosis: 50 Pre SYLVESTER Flow: oumm 03:50 PM Right Coronary, Right Posterior Descending Arteries with Right Posterolateral and Acute Marginal branches with 50 % stenosis. If graft is supplying this area, 0 % stenosis tsoumm 03:50 PM Procedure completed at 15:50 01/19/2019oumm 03:50 PM Did you address SYLVESTER flow and Dominance? YesCoronary Dominance: right tsoumm 03:51 PM Sign out completed: Radiation Dose 411.5 mGy, 52.8 Gy/cm2 Fluoro Time: 8.6 Isovue 370 - 200ml contrast 132 ml given by Von Thorne MD, [facility]. Complications: None. 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 Sedation minutes 36. Cardiac Rehab Consult needed: No. Confirmed administered medications: Yes oumm 03:52 PM Isovue 370 - 200ml,1 Bottle(s) used. tsoumm 03:52 PM Arterial sheath pulled, Vasc Band closure device used and was Successful S/N. tsoumm 03:52 PM 13 ml air in Vasc Band. tsoumm 03:52 PM Estimated Blood Loss: less than 20cc tsoummers 03:53 PM Post ECG Sinus Bradycardia tsoummers 03:53 PM Post Blood Pressure 115/60 tsoummers 03:53 PM 15:53 Post Pulses Rt Radial 1+ tsoummers 03:54 PM Information taught Cardiac Cath and Vasc Band tsoumm 03:54 PM Education needs Procedure, Plan of Care, Responsibilities of Patient in Care, and Disease Process tsoummers 03:54 PM Learning barriers :None tsoummers 03:55 PM Education Methods Verbal tsoummers 03:55 PM Education evaluation Able to repeat information tsoummers 03:55 PM Site status No bleeding/hematoma - Rt Wrist as reported by Anali Sawyer RT at 15:55 tsoummers 03:55 PM Report given to Josephine RODRIGUEZ Pt taken to Room #39. 15:55 tsoummers 03:55 PM Plavix, Effient or Brilinta given No tsoummers 03:55 PM Delay to floor No tsoummers 03:55 PM Patient out of room: 15:55 tsoummers 03:55 PM Family placed in consult room. [email or web address] Complications Complication None Hemodynamics Pressures Site Systolic/A Wave Diastolic/V Wave Mean AO 81 50 64 AO 91 59 75 AO 93 62 76 AO 94 64 79 LV 109 13 25 LV 111 11 25 AO 100 60 79 Post Procedure Information Blood Pressure: 115/60 mmHg Rhythm: Sinus Bradycardia Post procedural instructions were given Closure Device Time Device Success/Fail 01/19/2019 3:52:00 PM Mechanical Compression Successful Site Checks Time Location Status Staff Sheath In? Note 03:55 PM Rt Wrist No bleeding/hematoma Anali Sawyer RT Pulses Time Site Pre-Procedure Post-Procedure Note 3:53:00 PM Rt Radial 1+ Updated by Anali Sawyer RT (R) on 01/19/2019 3:57:49 PM electronically signed on 01/19/2019 3:59:37 PM with status of Final
[2019-01-20] MEDS: *HR* Heparin 5,000 UNIT/ML VIAL SQ SCH (05:33)
[2019-01-20 07:16] VITALS: BP 128/69
[2019-01-20] MEDS: Aspirin Enteric Coated 81 MG Tablet PO SCH (07:27)
[2019-01-20] MEDS: MAGNESIUM OXIDE 250 MG PO SCH (07:28)
[2019-01-20 08:33] LABS: Albumin 4.1 g/dL (3.5-5.7); Albumin/Globulin Ratio 2.1 (1.1-2.2); Bilirubin,Direct 0.3 mg/dL (0.0-0.2); Bilirubin,Indirect 0.9 mg/dL (0.0-1.2); Bilirubin,Total 1.2 mg/dL (0.3-1.0); Total Protein 6.1 g/dL (6.4-8.9)
[2019-01-20 09:02] LABS: Hepatitis B Surface Antigen Nonreactive (Nonreactive)
[2019-01-20 09:31] LABS: Hepatitis B Core IgM Nonreactive (Nonreactive)
[2019-01-20 09:32] LABS: Hepatitis A Antibody IgM Nonreactive (Nonreactive); Hepatitis C Virus Antibody Nonreactive (Nonreactive)
--- NOTE | 2019-01-20 10:05 | Discharge Summary ---
- NOTES TO OUTPATIENT PROVIDER Notes to Outpatient Provider: f/u with PCP as scheduled and repeat Liver function panel. Orders not resulted at time of discharge: Pending orders 01/19/19 13:02 Left Heart Cath [CL Cardiac Catheterization] [CL] Routine Date of Encounter: 01/20/19 Time of Encounter: 10:03 - Discharge Diagnosis (1) Chest pain Priority: Primary Status: Acute Qualifiers: Chest pain type: unspecified Qualified Code(s): R07.9 - Chest pain, unspecified (2) Headache Priority: Primary Status: Acute Qualifiers: Headache type: unspecified Headache chronicity pattern: acute headache Intractability: not intractable Qualified Code(s): R51 - Headache (3) Neck pain Priority: Primary Status: Acute (4) RICH (obstructive sleep apnea) Priority: Secondary Status: Acute (5) CAD (coronary artery disease) Priority: Secondary Status: Acute Qualifiers: Associated angina: angina presence unspecified Qualified Code(s): I25.10 - Atherosclerotic heart disease of [place] coronary artery without angina pectoris (6) CKD (chronic kidney disease) Priority: Secondary Status: Chronic Qualifiers: Chronic kidney disease stage: stage 3 (moderate) Qualified Code(s): N18.3 - Chronic kidney disease, stage 3 (moderate) (7) DVT prophylaxis Priority: Primary Status: Acute (8) Elevated transaminase level Priority: Primary Status: Acute Hospital course: Mr. Delgado is a 78 year old male with a past medical history of recently diagnosed coronary artery disease status post stent placement in October, hypertension, hyperlipidemia, CKD and GERD who presented to the ED due to chest pain. Patient states that earlier in the evening after dinner he developed sudden onset chest pain described as a constricting squeezing feeling involving the left side of his chest and radiating to the right side, 6 out of 10 in intensity. Patient also began having shortness of breath, nausea and diaphoresis. Reports pain appears to be aggravated with deep inspiration and cough. Patient does endorse a 10 day history of upper respiratory tract symptoms consistent with a cold and has been having a productive cough. Patient recently underwent left heart catheter in October identifying severe 2 vessel disease. [place] the vessel and stent was placed to RCA. Since then patient reports compliance with his dual antiplatelet therapy. Patient denied any chest pain during previous admission, only reporting shortness of breath with exertion. He states that chest pain today is entirely new. Upon arrival patient was afebrile and hemod ynamically stable. Vitals were stable. Initial laboratory workup was relatively unremarkable including a negative troponin. Creatinine was slightly elevated at 1.56 but appears to be near his baseline in the setting of chronic kidney disease. EKG showed normal sinus rhythm without evidence of ischemic changes. Chest pain reportedly resolved after nitroglycerin. He had just received another dose of sublingual nitroglycerin without improvement much improvement. He he also endorsed a throbbing headache involving the forehead and extending to the back of the neck associated with some photophobia. No prior history of migraines. In addition was complaining of neck pain aggravated with turning his neck side to side and with flexion. No reports of recent trauma Patient does endorse a history of chronic back pain but that this was new. A repeat EKG was unchanged. Further tests showed negative serial troponin, unremarkable EKG without acute ST-T change, and unremarkable echocardiogram with LV ejection 65% and mild LV DD. Cardiology was consulted because of high risk of ACS, patient subsequently underwent left heart catheterization which revealed patent RCA stent and the severe small vessel disease of diagonal branches. Medical management was recommended. The liver function test showed elevated AST/ALT/total bilirubin/ALP. Right upper quadrant Doppler showed fatty liver disease without biliary obstruction. Viral hepatitis panel was negative. Repeat liver function panel showed decreased level of AST/ALT/total bilirubin. He was instructed to follow-up with PCP and repeat PFT. He was discharged home today, will follow-up with PCP and cardiology as scheduled. Discharge discussed with: patient, family Time spent discussing smoking cessation with patient: more than 10 minutes - Time Spent with Patient Total time spent providing and/or coordinating discharge services: Time spent: Greater than 30 minutes - Discharge Medications Prescriptions: Continued DULoxetine [Cymbalta] 30 mg PO DAILY Tramadol HCl [Ultram] 50 mg PO DAILY PRN PRN Reason: Pain Lisinopril [Zestril] 5 mg PO DAILY Aspirin [Lo-Dose Aspirin EC] 81 mg PO DAILY Terazosin [Hytrin] 5 mg PO HS Metoprolol Tartrate [Lopressor] 12.5 mg PO DAILY PARoxetine HCl [Paroxetine HCl] 10 mg PO DAILY Clopidogrel [Plavix] 75 mg PO DAILY Magnesium Oxide [Magnesium] 250 mg PO DAILY Nitroglycerin [Nitrostat] 0.4 mg SL PRN PRN PRN Reason: Chest Pain Atorvastatin Calcium [Lipitor] 80 mg PO DAILY Home Medications: DULoxetine [Cymbalta] 30 mg PO DAILY 10/23/16 [History] Lisinopril [Zestril] 5 mg PO DAILY 10/23/16 [History] Tramadol HCl [Ultram] 50 mg PO DAILY PRN 10/23/16 [History] Aspirin [Lo-Dose Aspirin EC] 81 mg PO DAILY 08/16/18 [History] Terazosin [Hytrin] 5 mg PO HS 11/08/18 [History] Metoprolol Tartrate [Lopressor] 12.5 mg PO DAILY 11/13/18 [History] PARoxetine HCl [Paroxetine HCl] 10 mg PO DAILY 11/13/18 [History] Clopidogrel [Plavix] 75 mg PO DAILY 12/02/18 [History] Magnesium Oxide [Magnesium] 250 mg PO DAILY 12/02/18 [History] Nitroglycerin [Nitrostat] 0.4 mg SL PRN PRN 12/02/18 [History] Atorvastatin Calcium [Lipitor] 80 mg PO DAILY 01/19/19 [History] Allergies/Adverse Reactions: Allergy/AdvReac Type Severity Reaction Status Date / Time NSAIDS (Non-Steroidal AdvReac See Verified 01/19/19 13:03 Anti-Inflamma Comments Date of admission: 01/18/19 20:53 Primary care physician: Rubens Churchill MD Consults: 01/19/19 01:01 Consult to Cardiology [CONS] Routine Comment: Consulting Provider: Cardiology [place] Reason for Consult: Concern for UA Call Completed: No Anticipated date of discharge: 01/20/19 - Constitutional Vitals: Temp Pulse Resp BP Pulse Ox 98.4 F 61 16 128/69 94 01/20/19 07:11 01/20/19 07:11 01/20/19 07:11 01/20/19 07:11 01/20/19 07:11 General appearance: Present: A&O X 3 Exam: PHYSICAL EXAMINATION: GENERAL APPEARANCE: The patient is alert, oriented and in no acute distress. HEENT: Head is normocephalic. The sinuses are nontender. Pupils are equal and reactive. The nares are patent. Oropharynx clear without lesions. NECK: Supple without lymphadenopathy. HEART: Regular rate and rhythm. LUNGS: No crackles or wheezes are heard. ABDOMEN: Soft, nontender, nondistended with good bowel sounds heard. Inguinal area is normal. EXTREMITIES: Without cyanosis, clubbing or edema. NEUROLOGICAL: Gross nonfocal. SKIN: Warm and dry without any rash. - Patient Status Disposition: Home, Self-Care Condition: Fair Functional capacity at discharge: independent ambulation Overall status at discharge: patient is progressing back to baseline - Discharge Instructions Follow Up With: Rubens Churchill MD [Primary Care Provider] - 01/23/19 10:15 am Forms: ED Satisfaction Letter - Diet and Activity Activity: increase activity as tolerated Diet: low fat, low cholesterol, low salt diet
== END 2019-01-20 11:36 | disposition home or self-care (01) ==
LOC: 3BNU 19:37 → EMEROOARM 19:37 → 3BNU 22:40
PROVIDERS: ADMIT Internal Medicine; ATTEND Internal Medicine

== ENCOUNTER 2019-01-22 13:38 | Observation (INO) ==
[2019-01-22] MEDS ORDERED: Ondansetron 4 MG/2 ML VIAL IVP ONE (13:54)
[2019-01-22] MEDS ORDERED: *HR* HYDROmorphone (PF) 1 MG/ML SYRINGE IVP ONE ×2 (13:57→15:12)
--- NOTE | 2019-01-22 14:05 | Emergency Department Note ---
Disposition Clinical Impression: Elevated bilirubin, Upper abdominal pain, Transaminitis, Biliary sludge Disposition: Admitted As Inpatient Forms: ED Satisfaction Letter Time of Disposition: 15:25 General Adult HPI - General Chief complaint: ED Chest Pain Stated complaint: chest pain Time Seen by Provider: 01/22/19 13:41 Source: patient Limitations: no limitations - History of Present Illness Pain Scale: 8 - Related Data Home Medications Medication Instructions Recorded Confirmed DULoxetine [Cymbalta] 30 mg PO DAILY 10/23/16 01/19/19 Lisinopril [Zestril] 5 mg PO DAILY 10/23/16 01/19/19 Tramadol HCl [Ultram] 50 mg PO DAILY PRN 10/23/16 01/19/19 Aspirin [Lo-Dose Aspirin EC] 81 mg PO DAILY 08/16/18 01/19/19 Terazosin [Hytrin] 5 mg PO HS 11/08/18 01/19/19 Metoprolol Tartrate [Lopressor] 12.5 mg PO DAILY 11/13/18 01/19/19 PARoxetine HCl [Paroxetine HCl] 10 mg PO DAILY 11/13/18 01/19/19 Clopidogrel [Plavix] 75 mg PO DAILY 12/02/18 01/19/19 Magnesium Oxide [Magnesium] 250 mg PO DAILY 12/02/18 01/19/19 Nitroglycerin [Nitrostat] 0.4 mg SL PRN PRN 12/02/18 01/19/19 Atorvastatin Calcium [Lipitor] 80 mg PO DAILY 01/19/19 01/19/19 Allergies Allergy/AdvReac Type Severity Reaction Status Date / Time NSAIDS (Non-Steroidal AdvReac See Verified 01/22/19 13:48 Anti-Inflamma Comments Past Medical History - Past Medical History Medical history: Reports: arthritis, coronary artery disease, GERD, h yperlipidemia, hypertension, kidney stones, renal disease Surgical history: Reports: appendectomy, other Psychiatric history: Reports: no psych history - Social History Smoking Status: Former smoker Smokeless Tobacco Status: No Alcohol use: Reports: occasionally Drug use: Reports: none Physical Exam - General Limitations: no limitations General appearance: alert, in no apparent distress Course Vital Signs Temperature 97.9 F 01/22/19 13:44 Pulse Rate 63 01/22/19 13:44 Respiratory Rate 16 01/22/19 13:44 Blood Pressure 158/79 01/22/19 13:44 O2 Sat by Pulse Oximetry 98 01/22/19 13:44 Temperature 97.9 F 01/22/19 13:44 Pulse Rate 63 01/22/19 15:20 Respiratory Rate 18 01/22/19 15:20 Blood Pressure 135/57 01/22/19 15:20 O2 Sat by Pulse Oximetry 96 01/22/19 15:20 Oxygen Delivery Oxygen Delivery Room Air Medical Decision Making - Lab Data Result diagrams: 01/22/19 14:17 01/22/19 14:17 Lab Results 01/22/19 01/22/19 Range/Units 14:17 14:17 WBC 7.7 (4.3-11.1) K/mcL RBC 4.93 (4.19-5.50) M/mcL Hgb 15.0 (12.9-16.9) g/dL Hct 44.2 (37.5-50.1) % MCV 89.7 (83.0-100.0) fL MCH 30.4 (28.0-33.3) pg MCHC 33.9 (31.6-35.5) g/dL RDW 13.2 (11.5-14.5) % Plt Count 156 (140-400) K/mcL MPV 8.6 L (9.4-12.4) fL Immature Gran % 0.3 (0-4) % Seg Neutrophils % 65.3 % Lymphocytes % 15.9 % Monocytes % 13.1 % Eosinophils % 5.0 % Basophils % 0.4 % Neutrophils # 5.0 (1.6-8.9) K/mcL Lymphocytes # 1.2 (0.6-4.6) K/mcL Monocytes # 1.0 (0.0-1.3) K/mcL Eosinophils # 0.4 (0.0-0.6) K/mcL Basophils # 0.0 (0.0-0.2) K/mcL Sodium 139 (136-145) mEq/L Potassium 4.2 (3.5-5.1) mEq/L Chloride 103 (98-107) mEq/L Carbon Dioxide 25 (23-29) mEq/L BUN 18 (8-23) mg/dL Creatinine 1.35 H (0.70-1.30) mg/dL Est GFR ( Amer) > 60 (> 60) Est GFR (Non-Af Amer) 51 L (> 60) BUN/Creatinine Ratio 13 (6-26) Glucose 110 H (70-105) mg/dL Calculated Osmolality 291 (280-300) Calcium 10.3 (8.6-10.3) mg/dL Total Bilirubin 2.0 H (0.3-1.0) mg/dL Direct Bilirubin 1.2 H (0.0-0.2) mg/dL Indirect Bilirubin 0.8 (0.0-1.2) mg/dL AST 78 H (13-39) Units/L ALT 192 H (7-52) Units/L Alkaline Phosphatase 142 H (34-104) Units/L Troponin I < 0.03 (< 0.04) ng/mL Serum Total Protein 6.6 (6.4-8.9) g/dL Albumin 4.3 (3.5-5.7) g/dL Globulin 2.3 L (2.4-3.5) g/dL Albumin/Globulin Ratio 1.9 (1.1-2.2) Attestation Statement - Attestation Attestation: I examined this patient and my medical decision-making was reviewed with the Resident Physician. I agree with the documented findings, disposition and treatment plan as described except to the extent set forth below. 78-year-old male presented to the emergency room for upper abdominal pain that radiates up into his chest. Patient was just admitted to the hospital earlier this week. He had a cardiac catheterization done but no new stents were placed. He also had a liver ultrasound that showed a fatty infiltration of the liver on Saturday. The biliary system showed some sludge present but no obvious stones and no evidence of any acute cholecystitis. He returns today for this upper abdominal pain. He denies any history of pancreas problems. We will do a CT the abdomen and pelvis. We will check screening lab work. Currently on exam his pain is in the right upper quadrant epigastric region and some in the left upper quadrant as well. He appears to be very uncomfortable. IV ordered some pain medication and antiemetics. EKG did not show any significant findings other than he had evidence of 1 PVC. I do not feel that this pain in presentation is related to his heart. EKG reviewed with the resident and agree with his documentation.
--- NOTE | 2019-01-22 14:08 | Emergency Department Note ---
Disposition Clinical Impression: Elevated bilirubin, Upper abdominal pain, Transaminitis, Biliary sludge Disposition: Admitted As Inpatient Condition: Undetermined Referrals: Rubens Churchill MD [Primary Care Provider] - Forms: ED Satisfaction Letter Time of Disposition: 15:45 General Adult HPI - General Chief complaint: ED Chest Pain Stated complaint: chest pain Time Seen by Provider: 01/22/19 13:41 Source: patient Mode of arrival: ambulatory Limitations: no limitations Nursing Notes Reviewed: Yes Vital Signs Reviewed: Yes - History of Present Illness HPI Narrative: 78-year-old male with history of [place], hypertension, hyperlipidemia arrives to the emergency department with complaint of epigastric pain I merely his right upper quadrant epigastric region. The patient states this started this morning. It associated dry heaving and nausea. Patient states that he was recently seen in the hospital and had a cardiac catheter in October of this year. Patient states that he came to the emergency department a few days ago and was taking the Media Supervisor and was noted to have a clean catheter. No stents were placed at that time. He also had a liver ultrasound of the right upper quadrant which demonstrated biliary sludge without paracolic cystic fluid or cholecystitis. The patient states that this pain started this morning and he is complaining of 9 out of 10 pain. Associated nausea without vomiting. No diarrhea, hematochezia, melena. This patient is taking all his medications as prescribed. Patient has a significant amount of tenderness primarily his right upper quadrant is positive Valencia sign of the right side. Patient was administered antiemetic and pain medicine upon arrival to the emergency department. Pain Scale: 8 - Related Data Home Medications Medication Instructions Recorded Confirmed DULoxetine [Cymbalta] 30 mg PO DAILY 10/23/16 01/19/19 Lisinopril [Zestril] 5 mg PO DAILY 10/23/16 01/19/19 Tramadol HCl [Ultram] 50 mg PO DAILY PRN 10/23/16 01/19/19 Aspirin [Lo-Dose Aspirin EC] 81 mg PO DAILY 08/16/18 01/19/19 Terazosin [Hytrin] 5 mg PO HS 11/08/18 01/19/19 Metoprolol Tartrate [Lopressor] 12.5 mg PO DAILY 11/13/18 01/19/19 PARoxetine HCl [Paroxetine HCl] 10 mg PO DAILY 11/13/18 01/19/19 Clopidogrel [Plavix] 75 mg PO DAILY 12/02/18 01/19/19 Magnesium Oxide [Magnesium] 250 mg PO DAILY 12/02/18 01/19/19 Nitroglycerin [Nitrostat] 0.4 mg SL PRN PRN 12/02/18 01/19/19 Atorvastatin Calcium [Lipitor] 80 mg PO DAILY 01/19/19 01/19/19 Allergies Allergy/AdvReac Type Severity Reaction Status Date / Time NSAIDS (Non-Steroidal AdvReac See Verified 01/22/19 13:48 Anti-Inflamma Comments All systems ED: reviewed and negative except as stated. Constitutional: Denies: fever, chills, weakness ENT ED: Denies: dysphagia Cardiovascular: Denies: chest pain, dyspnea on exertion, edema, syncope Respiratory: Denies: cough, dyspnea, sputum production Gastrointestinal: Reports: abdominal pain, nausea. Denies: vomiting, diarrhea, constipation, hematemesis, melena, hematochezia Genitourinary: Denies: urgency, dysuria Musculoskeletal: Denies: back pain Integumentary: Denies: rash Neurological: Denies: headache Past Medical History - Past Medical History Attestation: Yes The following information was validated with the patient. Source: patient, old records reviewed Medical history: Reports: arthritis, coronary artery disease, GERD, hyperlipidemia, hypertension, kidney stones, renal disease Surgical history: Reports: appendectomy, other Psychiatric history: Reports: no psych history - Social History Smoking Status: Former smoker Smokeless Tobacco Status: No Alcohol use: Reports: occasionally Drug use: Reports: none Physical Exam - General Limitations: no limitations General appearance: alert, in no apparent distress - Head Head exam: atraumatic, normocephalic, normal inspection - Eye Eye exam: Present: normal appearance, PERRL, EOMI - ENT ENT exam: normal exam, normal oropharynx, mucous membranes moist - Neck Neck exam: Present: normal inspection, full ROM, trachea midline - Chest Chest inspection: Present: normal inspection, symmetric chest wall rise - Respiratory Respiratory exam: Present: normal lung sounds bilaterally - Cardiovascular Cardiovascular exam: Present: regular rate, normal rhythm, normal heart sounds - Abdominal Exam Abdominal exam: Present: soft, tenderness (RUQ), guarding, Valencia's sign. Absent: distention, rebound, rigidity, psoas sign, obturator sign, heel tap sign, Rovsing's sign, tenderness at McBurney's Point - Extremities Exam Extremities exam: Present: normal inspection, full ROM, normal capillary refill. Absent: tenderness, pedal edema - Neurological Exam Neurological exam: Present: alert, oriented X3 - Skin Skin exam: Present: warm, dry, intact, other (Ecchymosis to left secondary to previous injections.) Course Vital Signs Temperature 97.9 F 01/22/19 13:44 Pulse Rate 63 01/22/19 13:44 Respiratory Rate 16 01/22/19 13:44 Blood Pressure 158/79 01/22/19 13:44 O2 Sat by Pulse Oximetry 98 01/22/19 13:44 Temperature 97.9 F 01/22/19 13:44 Pulse Rate 63 01/22/19 15:20 Respiratory Rate 18 01/22/19 15:20 Blood Pressure 135/57 01/22/19 15:20 O2 Sat by Pulse Oximetry 96 01/22/19 15:20 Oxygen Delivery Oxygen Delivery Room Air Medical Decision Making - MDM Narrative Medical decision making narrative: Patient workup in the emergency department demonstrates elevation in transaminases and bilirubin. Patient was noted to have biliary sludge. Given the patient's recent right upper quadrant ultrasound and CT scan findings, along with a lab work, we will discuss case with on-call surgery, Dr. Yamini Ortiz who agreed that the patient likely needs an MRCP. We will admit the patient to the hospital at this time for likely MRCP. I spoke to on-call hospitalist, Dr. Clemons who requested that we page GI physician pets salesperson as well to make him aware. Patient was accepted to their service. No further questions or concerns noted. - Lab Data Lab results reviewed: Yes I reviewed the patient's lab results. Result diagrams: 01/22/19 14:17 01/22/19 14:17 Lab Results 01/22/19 01/22/19 Range/Units 14:17 14:17 WBC 7.7 (4.3-11.1) K/mcL RBC 4.93 (4.19-5.50) M/mcL Hgb 15.0 (12.9-16.9) g/dL Hct 44.2 (37.5-50.1) % MCV 89.7 (83.0-100.0) fL MCH 30.4 (28.0-33.3) pg MCHC 33.9 (31.6-35.5) g/dL RDW 13.2 (11.5-14.5) % Plt Count 156 (140-400) K/mcL MPV 8.6 L (9.4-12.4) fL Immature Gran % 0.3 (0-4) % Seg Neutrophils % 65.3 % Lymphocytes % 15.9 % Monocytes % 13.1 % Eosinophils % 5.0 % Basophils % 0.4 % Neutrophils # 5.0 (1.6-8.9) K/mcL Lymphocytes # 1.2 (0.6-4.6) K/mcL Monocytes # 1.0 (0.0-1.3) K/mcL Eosinophils # 0.4 (0.0-0.6) K/mcL Basophils # 0.0 (0.0-0.2) K/mcL Sodium 139 (136-145) mEq/L Potassium 4.2 (3.5-5.1) mEq/L Chloride 103 (98-107) mEq/L Carbon Dioxide 25 (23-29) mEq/L BUN 18 (8-23) mg/dL Creatinine 1.35 H (0.70-1.30) mg/dL Est GFR ( Amer) > 60 (> 60) Est GFR (Non-Af Amer) 51 L (> 60) BUN/Creatinine Ratio 13 (6-26) Glucose 110 H (70-105) mg/dL Calculated Osmolality 291 (280-300) Calcium 10.3 (8.6-10.3) mg/dL Total Bilirubin 2.0 H (0.3-1.0) mg/dL Direct Bilirubin 1.2 H (0.0-0.2) mg/dL Indirect Bilirubin 0.8 (0.0-1.2) mg/dL AST 78 H (13-39) Units/L ALT 192 H (7-52) Units/L Alkaline Phosphatase 142 H (34-104) Units/L Troponin I < 0.03 (< 0.04) ng/mL Serum Total Protein 6.6 (6.4-8.9) g/dL Albumin 4.3 (3.5-5.7) g/dL Globulin 2.3 L (2.4-3.5) g/dL Albumin/Globulin Ratio 1.9 (1.1-2.2) - Radiology Data Radiology results reviewed: Yes I reviewed the patient's radiology results. Abdomen/Pelvis CT 01/22/19 13:52 IMPRESSION: 1. No acute intra-abdominal abnormality to account for the patient's symptoms. 2. Mild gallbladder distention without radiodense gallstones. If there is clinical concern for acute cholecystitis, dedicated ultrasound is recommended. 3. Severe diverticulosis. 4. Nonobstructing bilateral nephrolithiasis. 5. Prostatomegaly. D/ / 01/22/2019 14:58:47 Zenia Piña MD / rebecca Interpreting Provider: Zenia Piña MD Chest X-Ray 01/22/19 13:52 IMPRESSION: 1. Bibasilar atelectasis or infiltrates. D/ / Comfort Garcia MD / Comfort Garcia MD Interpreting Provider: Comfort Garcia MD - EKG Data EKG #1 EKG attestation: Yes I reviewed and interpreted this EKG. EKG results narrative: Heart rate 65 beats for minute. Normal sinus rhythm. No ST elevation or ST depression noted. Multiple PVCs. No other acute changes noted.
[2019-01-22 14:32] LABS: Basophils % 0.4 %; Eosinophils # 0.4 K/mcL (0.0-0.6); Hematocrit 44.2 % (37.5-50.1); Immature Granulocytes % 0.3 % (0-4); Lymphocytes # 1.2 K/mcL (0.6-4.6); Lymphocytes % 15.9 %; Mean Corpuscular HGB Conc 33.9 g/dL (31.6-35.5); Mean Corpuscular Hemoglobin 30.4 pg (28.0-33.3); Mean Corpuscular Volume 89.7 fL (83.0-100.0); Mean Platelet Volume 8.6 fL (9.4-12.4); Monocytes % 13.1 %; Platelet Count 156 K/mcL (140-400); Red Blood Count 4.93 M/mcL (4.19-5.50); Red Cell Distribution Width 13.2 % (11.5-14.5); Segmented Neutrophils % 65.3 %
[2019-01-22 14:53] LABS: Alanine Aminotransferase 192 Units/L (7-52); Albumin 4.3 g/dL (3.5-5.7); Albumin/Globulin Ratio 1.9 (1.1-2.2); Alkaline Phosphatase 142 Units/L (34-104); Aspartate Amino Transferase 78 Units/L (13-39); BUN/Creatinine Ratio 13 (6-26); Bilirubin,Direct 1.2 mg/dL (0.0-0.2); Bilirubin,Indirect 0.8 mg/dL (0.0-1.2); Blood Urea Nitrogen 18 mg/dL (8-23); Calcium 10.3 mg/dL (8.6-10.3); Carbon Dioxide 25 mEq/L (23-29); Chloride 103 mEq/L (98-107); Globulin 2.3 g/dL (2.4-3.5); Glucose 110 mg/dL (70-105); Osmolality,Calculated 291 (280-300); Potassium 4.2 mEq/L (3.5-5.1); Sodium 139 mEq/L (136-145); Total Protein 6.6 g/dL (6.4-8.9); Troponin I < 0.03 ng/mL (< 0.04); eGFR For Non-African Americans 51 (> 60)
[2019-01-22] MEDS ORDERED: Hyoscyamine SL 0.125 MG TAB.SUBL SL STA (15:25)
--- NOTE | 2019-01-22 17:27 | Internal Med History&Physical ---
Date of Encounter: 01/22/19 Time of Encounter: 17:00 Internal Medicine - H&P: HPI Chief complaint: Abdominal pain History of present illness: Patient is a 78-year-old male with past medical history significant for coronary arterial disease, CKD stage III, hypertension, hyperlipidemia and mood disorder who presents to the ER due to abdominal pain. Patient reports of a 24-48 hour history of epigastric pain which he describes as achy/squeezing with a severity of 8 out of 10 that was constant with no provoking or relieving factors. Patient denies any associated symptoms of nausea/vomiting/diarrhea. Patient does report being constipated. In the ER, patient was noted to have elevated transaminases. CT of the abdomen showed no acute intra-abdominal abnormalities but mild gallbladder distention was seen without radiodense gallstones. Liver ultrasound on 01/20/19 showed small amount of sludge in gallbladder. ER physician has consulted both general surgery and GI from the ER and will be following the patient for workup and management. Past Med Surg Social Fam HX - Past Medical History Medical history: arthritis, coronary artery disease, GERD, hyperlipidemia, hypertension, kidney stones, renal disease Additional medical history: ANGINA. SLEEP APNEA CPAP. FORMER SMOKER Psychiatric history: no psych history - Past Surgical History Surgical History: appendectomy, other Additional surgical history: back. left knee. appendectomy - Social History Smoking Status: Former smoker Smokeless Tobacco Status: No Alcohol use: occasionally Drug use: none - Family History Mother Living Status: Hx Family Cardiac Disorders: Yes (mother,father) Hx Family Respiratory Disorders: No Hx Family Cancer: No Hx Family GI Disorders: No Hx Family Endocrine Disorder: Yes (brother,) Hx Family Neuromuscular Disorders: No Hx Family Neurologic Disorders: Yes (brother) Hx Family HEENT Disorders: No Hx Family Autoimmune Disorders: No Internal Medicine - H&P: Meds DULoxetine [Cymbalta] 30 mg PO DAILY 10/23/16 [History] Lisinopril [Zestril] 5 mg PO DAILY 10/23/16 [History] Aspirin [Lo-Dose Aspirin EC] 81 mg PO DAILY 08/16/18 [History] Terazosin [Hytrin] 5 mg PO HS 11/08/18 [History] PARoxetine HCl [Paroxetine HCl] 10 mg PO DAILY 11/13/18 [History] Clopidogrel [Plavix] 75 mg PO DAILY 12/02/18 [History] Magnesium Oxide [Magnesium] 250 mg PO DAILY 12/02/18 [History] Nitroglycerin [Nitrostat] 0.4 mg SL PRN PRN 12/02/18 [History] Atorvastatin Calcium [Lipitor] 80 mg PO DAILY 01/19/19 [History] Metoprolol [Lopressor] 12.5 mg PO HS 01/22/19 [History] Allergy/AdvReac Type Severity Reaction Status Date / Time NSAIDS (Non-Steroidal AdvReac See Verified 01/22/19 13:48 Anti-Inflamma Comments All Systems PM: A 10-system review of systems was performed and is negative for pertinent findings except as documented above in the HPI. - Constitutional Vitals: Temp Pulse Resp BP Pulse Ox 97.9 F 63 18 135/57 96 01/22/19 13:44 01/22/19 15:20 01/22/19 15:20 01/22/19 15:20 01/22/19 15:20 Exam: General appearance: Present: A&O X 3, no acute distress - Head Head exam: Present: normocephalic - Eye Eye exam: Present: normal appearance - ENT ENT exam: Present: mucous membranes moist - Respiratory Respiratory exam: Present: CTAB. Absent: accessory muscle use, rales, rhonchi, wheezes - Cardiovascular Cardiovascular exam: Present: RRR, +S1, +S2. Absent: diastolic murmur, gallop, rubs, systolic murmur - GI/Abdominal GI/Abdominal exam: Present: Right upper quadrant tenderness to palpation - Extremities Exam Extremities exam: Absent: pedal edema - Neurological Exam Neurological exam: Present: alert, oriented X3, no focal deficits. Absent: altered - Psychiatric Psychiatric exam: -normal mood Skin exam: -normal color Internal Med - H&P Results - Labs CBC & Chem 7: 01/22/19 14:17 01/22/19 14:17 Labs: Short CBC 01/22/19 Range/Units 14:17 WBC 7.7 (4.3-11.1) K/mcL Hgb 15.0 (12.9-16.9) g/dL Hct 44.2 (37.5-50.1) % Plt Count 156 (140-400) K/mcL Neutrophils # 5.0 (1.6-8.9) K/mcL BMP 01/22/19 14:17 Sodium 139 Potassium 4.2 Chloride 103 Carbon Dioxide 25 BUN 18 Creatinine 1.35 H Glucose 110 H Calcium 10.3 Cardiac Enzymes 01/22/19 Range/Units 14:17 Troponin I < 0.03 (< 0.04) ng/mL Liver Function 01/22/19 Range/Units 14:17 Total Bilirubin 2.0 H (0.3-1.0) mg/dL Direct Bilirubin 1.2 H (0.0-0.2) mg/dL AST 78 H (13-39) Units/L ALT 192 H (7-52) Units/L Alkaline Phosphatase 142 H (34-104) Units/L Albumin 4.3 (3.5-5.7) g/dL - Impressions ITS Impressions Abdomen/Pelvis CT 01/22/19 13:52 IMPRESSION: 1. No acute intra-abdominal abnormality to account for the patient's symptoms. 2. Mild gallbladder distention without radiodense gallstones. If there is clinical concern for acute cholecystitis, dedicated ultrasound is recommended. 3. Severe diverticulosis. 4. Nonobstructing bilateral nephrolithiasis. 5. Prostatomegaly. D/ / 01/22/2019 14:58:47 Zenia Piña MD / rebecca Interpreting Provider: Zenia Piña MD Chest X-Ray 01/22/19 13:52 IMPRESSION: 1. Bibasilar atelectasis or infiltrates. D/ / Comfort Garcia MD / Comfort Garcia MD Interpreting Provider: Comfort Garcia MD - Assessment and Plan (1) Upper abdominal pain Current Visit: Yes Status: Acute Assessment and plan: Patient with right upper quadrant tenderness to palpation on physical exam. He was noted to have elevated transaminases on admission. CT of the abdomen showed no acute intra-abdominal abnormalities but mild gallbladder distention was seen without radiodense gallstones. Liver ultrasound on 01/20/19 showed small amount of sludge in gallbladder. General surgery consulted and appreciate recommendations (2) Elevated transaminase level Current Visit: No Status: Acute Assessment and plan: Patient found to have a total bilirubin 2.0, direct bilirubin 1.2, ALT of 142 and AST is 78 LFTs on 01/19/19: AST 723; ALT 699 (3) Biliary sludge Current Visit: Yes Status: Acute Assessment and plan: Liver ultrasound on 01/20/19 showed small amount of sludge in gallbladder. Patient with right upper quadrant tenderness to palpation on exam as above Surgery consulted as above (4) CAD (coronary artery disease) Current Visit: No Status: Acute Assessment and plan: Continue aspirin, Plavix, beta damaris and SUGAR inhibitor Qualifiers: Coronary Disease-Associated Artery/Lesion type: [place] artery Associated angina: angina presence unspecified Qualified Code(s): I25.10 - Atherosclerotic heart disease of [place] coronary artery without angina pectoris (5) CKD (chronic kidney disease) Current Visit: No Status: Chronic Assessment and plan: Creatinine 1.35 on admission which is at baseline Continue to monitor Qualifiers: Chronic kidney disease stage: stage 3 (moderate) Qualified Code(s): N18.3 - Chronic kidney disease, stage 3 (moderate) (6) HLD (hyperlipidemia) Current Visit: Yes Status: Acute Assessment and plan: Continue statin Qualifiers: Hyperlipidemia type: unspecified Qualified Code(s): E78.5 - Hyperlipidemia, unspecified (7) Mood disorder Current Visit: Yes Status: Acute Assessment and plan: Continue home medications (8) DVT prophylaxis Current Visit: No Status: Acute Assessment and plan: Subcutaneous heparin - Time Spent With Patient Total time spent is greater than 50% in coordination of care (as documented) at patient's floor/unit and/or counseling patient:
[2019-01-22] MEDS ORDERED: Naloxone 0.4 MG/ML INJ IVP PRN (17:31)
[2019-01-22] MEDS ORDERED: Ondansetron ODT 4 MG TAB.RAPDIS SL PRN (17:31)
[2019-01-22] MEDS ORDERED: Nitroglycerin 0.4 MG TAB.SUBL SL PRN (17:48)
[2019-01-22 18:23] LABS: Lipase 220 Units/L (11-82)
[2019-01-22] MEDS: OXYCODONE Oral CONC 10 MG/0.5 ML ORAL.SYG SL PRN (18:37)
[2019-01-22] MEDS: 0.9 % Sodium Chloride 1,000 ML IVC SCH (18:38)
--- NOTE | 2019-01-22 19:02 | AcuteCare Surgery Consult Note ---
Date of Encounter: 01/22/19 Time of Encounter: 19:00 Assessment and Plan (1) Biliary colic Current Visit: Yes Status: Acute Pt is symptomatic with severe biliary colic. With elevated bilirubin, transaminases and lipase, there is concern for choledocholithiasis. MRCP is pending. If MRCP is negative for bile duct stones will recommend lap fanny. If MRCP is positive for CBD stones will recommend ERCP followed by lap fanny. ASA and plavix on hold with cardiac consult pending. (2) Hyperbilirubinemia Current Visit: Yes Status: Acute see above (3) Elevated transaminase level Current Visit: No Status: Acute see above (4) CAD (coronary artery disease) Current Visit: No Status: Acute RCA stent 10/2018. Pt on ASA and plavix; last dose of both 01/22/19. Cardiac consult pending for pre-op management of ASA/Plavix. Qualifiers: Coronary Disease-Associated Artery/Lesion type: [place] artery Associated angina: angina presence unspecified Qualified Code(s): I25.10 - Atherosclerotic heart disease of [place] coronary artery without angina pectoris History of Present Illness Reason for consult: abdominal pain Requesting physician: Pedro Laughlin History of present illness: This 78 y/o male pt is writhing in pain with family at his bedside. He reports that he has had "pain" for over a week with the worst pain on Saturday, ~4 days ago and then 6 hours ago. He states his pain is severe. His pain is colic-like in nature. He cannot get comfortable. Recent Oxycodone SL has not helped the pain. When asked to indicate where his pain is he indicates to RUQ abdominal area. He also c/o SOB. He states he thinks this is d/t abdominal pain. Pt denies hx of GB disease in the past. He denies noticing yellow color changes to his eyes or skin. Lab work-up reveals mildly elevated t bili, transaminases, alk phos and lipase. These levels are improved since previous admission on 01/18/19. His acute biliary colic is complicated by CAD with stent 10/2018 and recent cardiac cath 01/18/19 due to this recent pain. Past Med Surg Social Fam HX - Past Medical History Medical history: arthritis, coronary artery disease, GERD, hyperlipidemia, hypertension, kidney stones, renal disease Additional medical history: ANGINA. SLEEP APNEA CPAP. FORMER SMO[employer] Psychiatric history: no psych history - Past Surgical History Surgical History: appendectomy, other Additional surgical history: back. left knee. appendectomy - Social History Smoking Status: Former smoker Smokeless Tobacco Status: No Alcohol use: occasionally Drug use: none - Family History Mother Living Status: Hx Family Cardiac Disorders: Yes (mother,father) Hx Family Respiratory Disorders: No Hx Family Cancer: No Hx Family GI Disorders: No Hx Family Endocrine Disorder: Yes (brother,) Hx Family Neuromuscular Disorders: No Hx Family Neurologic Disorders: Yes (brother) Hx Family HEENT Disorders: No Hx Family Autoimmune Disorders: No Medications and Allergies DULoxetine [Cymbalta] 30 mg PO DAILY 10/23/16 [History] Lisinopril [Zestril] 5 mg PO DAILY 10/23/16 [History] Aspirin [Lo-Dose Aspirin EC] 81 mg PO DAILY 08/16/18 [History] Terazosin [Hytrin] 5 mg PO HS 11/08/18 [History] PARoxetine HCl [Paroxetine HCl] 10 mg PO DAILY 11/13/18 [History] Clopidogrel [Plavix] 75 mg PO DAILY 12/02/18 [History] Magnesium Oxide [Magnesium] 250 mg PO DAILY 12/02/18 [History] Nitroglycerin [Nitrostat] 0.4 mg SL AD PRN 12/02/18 [History] Atorvastatin Calcium [Lipitor] 80 mg PO DAILY 01/19/19 [History] Metoprolol [Lopressor] 12.5 mg PO HS 01/22/19 [History] Allergy/AdvReac Type Severity Reaction Status Date / Time NSAIDS (Non-Steroidal AdvReac See Verified 01/22/19 13:48 Anti-Inflamma Comments Review of Systems All systems PM: The remainder of the systems were reviewed and are negative - Constitutional as per HPI, no anorexia, no chills, no fatigue, no fever(s), no night sweats, no weakness - EENT Nose, mouth and throat: no dizziness, no dry mouth, no nasal congestion, no nasal discharge, no sinus pain, no sinus pressure, no sore throat - Cardiovascular chest pain, dyspnea, no diaphoresis, no edema - Respiratory dyspnea, no cough, no wheezing - Gastrointestinal abdominal pain, cramping, no belching, no bloating, no diarrhea, no nausea, no vomiting - Genitourinary no difficulty urinating, no dysuria, no urinary frequency - Integumentary jaundice, no dry skin, no pruritus, no rash, no wounds - Neurological no confusion, no dizziness, no focal weakness, no weakness - Psychiatric anxiety, no depression - Endocrine no fatigue - Hematologic/Lymphatic easy bleeding (Pt is on ASA and Plavix), no easy bruising General Surgery Exam Initial Vital Signs Temp Pulse Resp BP Pulse Ox 97.9 F 63 16 158/79 98 01/22/19 13:44 01/22/19 13:44 01/22/19 13:44 01/22/19 13:44 01/22/19 13:44 - General physical appearance moderate distress, moderate pain, severe pain, jaundice. negative: cachectic - Eyes PERRL, normal ocular movement, icteric - ENT no congestion, dry mucosa. negative: nasal discharge - Neck no masses, no lymphadectomy, no venous distension - Respiratory normal respiratory effort, clear to auscultation - Cardiovascular Cardiovascular exam: Present: RRR - Abdomen Abdomen general surgery: Present: bowel sounds present, tender. Absent: distended Abdominal Tenderness: Present: RUQ - Genitourinary Present: normal penis with no external lesions - Integumentary Integumentary general surgery: Present: warm and dry, other (+jaundice) - Neurologic Present: CN 2-12 grossly intact, normal coordination - Musculoskeletal Present: normal posture - Psychiatric Psychiatric general surgery: Present: A&Ox3, appropriate Exam Initial Vital Signs Temp Pulse Resp BP Pulse Ox 97.9 F 63 16 158/79 98 01/22/19 13:44 01/22/19 13:44 01/22/19 13:44 01/22/19 13:44 01/22/19 13:44 Results - Labs 01/22/19 14:17 01/22/19 14:17 Abnormal lab results MPV 8.6 fL (9.4-12.4) L 01/22/19 14:17 1.35 mg/dL (0.70-1.30) H 01/22/19 14:17 Est GFR (Non-Af Amer) 51 (> 60) L 01/22/19 14:17 Glucose 110 mg/dL (70-105) H 01/22/19 14:17 2.0 mg/dL (0.3-1.0) H 01/22/19 14:17 1.2 mg/dL (0.0-0.2) H 01/22/19 14:17 AST 78 Units/L (13-39) H 01/22/19 14:17 ALT 192 Units/L (7-52) H 01/22/19 14:17 142 Units/L (34-104) H 01/22/19 14:17 2.3 g/dL (2.4-3.5) L 01/22/19 14:17 220 Units/L (11-82) H 01/22/19 14:17 Diabetes panel 01/22/19 Range/Units 14:17 Sodium 139 (136-145) mEq/L Potassium 4.2 (3.5-5.1) mEq/L Chloride 103 (98-107) mEq/L Carbon Dioxide 25 (23-29) mEq/L BUN 18 (8-23) mg/dL Creatinine 1.35 H (0.70-1.30) mg/dL Glucose 110 H (70-105) mg/dL Calcium 10.3 (8.6-10.3) mg/dL AST 78 H (13-39) Units/L ALT 192 H (7-52) Units/L Alkaline Phosphatase 142 H (34-104) Units/L Albumin 4.3 (3.5-5.7) g/dL Calcium panel 01/22/19 Range/Units 14:17 Calcium 10.3 (8.6-10.3) mg/dL Albumin 4.3 (3.5-5.7) g/dL Pituitary panel 01/22/19 Range/Units 14:17 Sodium 139 (136-145) mEq/L Potassium 4.2 (3.5-5.1) mEq/L Chloride 103 (98-107) mEq/L Carbon Dioxide 25 (23-29) mEq/L BUN 18 (8-23) mg/dL Creatinine 1.35 H (0.70-1.30) mg/dL Glucose 110 H (70-105) mg/dL Calcium 10.3 (8.6-10.3) mg/dL Adrenal panel 01/22/19 Range/Units 14:17 Sodium 139 (136-145) mEq/L Potassium 4.2 (3.5-5.1) mEq/L Chloride 103 (98-107) mEq/L Carbon Dioxide 25 (23-29) mEq/L BUN 18 (8-23) mg/dL Creatinine 1.35 H (0.70-1.30) mg/dL Glucose 110 H (70-105) mg/dL Calcium 10.3 (8.6-10.3) mg/dL Total Bilirubin 2.0 H (0.3-1.0) mg/dL AST 78 H (13-39) Units/L ALT 192 H (7-52) Units/L Alkaline Phosphatase 142 H (34-104) Units/L Albumin 4.3 (3.5-5.7) g/dL All other labs normal. - Imaging CT scan - abdomen: image reviewed (+distension of GB without pericholecystic fluid or GB wall thickening) CT scan - pelvis: image reviewed US - abdomen: image reviewed (gallbladder sludge) Consult Discharge Plan - Plan Referrals: Rubens Churchill MD [Primary Care Provider] -
[2019-01-22] MEDS: Acetaminophen IV 1,000 MG/100 ML INFUS..BTL IVPB SCH (21:49)
[2019-01-22] MEDS ORDERED: *HR* OxyCODONE Immed Rel 5 MG TABLET PO ONE (22:05)
[2019-01-22] MEDS: *HR* Heparin 5,000 UNIT/ML VIAL SQ SCH (22:14)
[2019-01-23] MEDS ORDERED: Acetaminophen IV 1,000 MG/100 ML INFUS..BTL IVPB SCH
[2019-01-23] MEDS: Piperacillin/Tazobactam 3.375 GM in 0.9 % Sodium Chloride Mini Bag 100 ML IVPB SCH ×3 (00:09→16:47)
[2019-01-23] MEDS: Acetaminophen IV 1,000 MG/100 ML INFUS..BTL IVPB SCH ×5 (00:53→23:56)
[2019-01-23] MEDS: OXYCODONE Oral CONC 10 MG/0.5 ML ORAL.SYG SL PRN ×2 (02:52→16:47)
[2019-01-23] MEDS ORDERED: diazePAM 10 MG/2 ML SYRINGE IVP ONE (03:36)
[2019-01-23] MEDS ORDERED: tiZANidine 4 MG TABLET PO ONE (03:37)
[2019-01-23 04:36] LABS: Basophils % 0.1 %; Hematocrit 42.1 % (37.5-50.1); Hemoglobin 14.1 g/dL (12.9-16.9); Immature Granulocytes % 0.3 % (0-4); Lymphocytes # 0.3 K/mcL (0.6-4.6); Lymphocytes % 4.4 %; Mean Corpuscular HGB Conc 33.5 g/dL (31.6-35.5); Mean Corpuscular Hemoglobin 30.3 pg (28.0-33.3); Mean Corpuscular Volume 90.5 fL (83.0-100.0); Mean Platelet Volume 8.7 fL (9.4-12.4); Monocytes # 0.2 K/mcL (0.0-1.3); Monocytes % 2.3 %; Neutrophils # 7.2 K/mcL (1.6-8.9); Platelet Count 136 K/mcL (140-400); Red Blood Count 4.65 M/mcL (4.19-5.50); Red Cell Distribution Width 13.2 % (11.5-14.5); Segmented Neutrophils % 92.9 %
[2019-01-23 04:54] LABS: Albumin 4.1 g/dL (3.5-5.7); Albumin/Globulin Ratio 1.7 (1.1-2.2); Bilirubin,Total 5.9 mg/dL (0.3-1.0); Calcium 9.6 mg/dL (8.6-10.3); Globulin 2.4 g/dL (2.4-3.5); Potassium 3.9 mEq/L (3.5-5.1); Total Protein 6.5 g/dL (6.4-8.9)
[2019-01-23] MEDS ORDERED: 0.9 % Sodium Chloride 500 ML IVC ONE (05:31)
[2019-01-23] MEDS ORDERED: 0.9 % Sodium Chloride 500 ML ONE (05:34)
[2019-01-23] MEDS: *HR* Heparin 5,000 UNIT/ML VIAL SQ SCH ×2 (05:48→17:54)
[2019-01-23 06:44] LABS: Adenovirus Not Detected (Not Detect); Bordetella Pertussis Not Detected (Not Detect); Chlamydophila pneumoniae Not Detected (Not Detect); Coronavirus 229E Not Detected (Not Detect); Coronavirus HKU1 Not Detected (Not Detect); Coronavirus NL63 Not Detected (Not Detect); Coronavirus OC43 Not Detected (Not Detect); Human Metapneumovirus Not Detected (Not Detect); Human Rhinovirus/Enterovirus Not Detected (Not Detect); Influenza A Subtype 2009 H1 Not Detected (Not Detect); Influenza A Untypeable Not Detected (Not Detect); Influenza B Not Detected (Not Detect); Mycoplasma pneumoniae Not Detected (Not Detect); Parainfluenza Virus 1 Not Detected (Not Detect); Parainfluenza Virus 2 Not Detected (Not Detect); Parainfluenza Virus 3 Not Detected (Not Detect); Parainfluenza Virus 4 Not Detected (Not Detect); Respiratory Syncytial Virus Not Detected (Not Detect)
--- NOTE | 2019-01-23 06:45 | Event Note ---
Date of Encounter: 01/23/19 Time of Encounter: 00:50 Alerted by pts. nurse JENNIFER Abbott that the pt. was reporting neck pain. Pt. was admitted for CP and abdominal pain for suspected gallbladder involvement. One- time dose of 10 mg immediate release oxycodone ordered. After administration, pt. stated pain was improved. Nurse also reported pt. was shivering. VS at the time: BP 137/68, 98.0F temp, HR 96, SpO2 93%. Went to see the pt. who was shivering and reporting chills. Warmed blankets placed on pt. One-time order for Valium 2.5 mg IVP ordered to help pts. anxiety. Pt. was on CPAP. Pt. confirmed pain had improved. Alerted by nurse ar 03:28 that pt was awake and shivering again stating that something was not right. VS: 172/65, HR 108, 98.0F temp, SpO2 90% on O2. Went to see the pt. again who was now resting w/CPAP on. Nurse instructed to continue monitoring pt. closely and alert me of changes. Alerted at 05:21 that the pt. had gotten out of bed and urinated on the floor then pulled his IV out. Nurse reported pt. was now diaphoretic and wanting water. Pt. has been on IV fluids at 75/hr. BP was now 72/35. Went to see pt. immediately and instructed nurse to get EKG and order the following: blood cultures x2, legionella and strep pneumoniae antigens, 1V portable CXR, and respiratory infection panel (all stat). Pt. was diaphoretic. 500 ml bolus ordered. EKG showed supraventricular rhythm. Previous EKG showed SR w/multiple premature complexes (ventricular and supraventricular) and abnormal R-wave progression in early transition. Following bolus, pts. BP improved to mid 90s systolically. Awaiting culture and panel results. Nurse instructed to continue monitoring pt. very closely and alert me immediately of any new or adverse changes.
--- NOTE | 2019-01-23 08:23 | AcuteCareSurgery Progress Note ---
<Colleen Escobedo N - Last Filed: 01/23/19 08:20> Date of Encounter: 01/23/19 Time of Encounter: 08:20 - Assessment and Plan (1) Biliary colic Current Visit: Yes Status: Acute Patient continues to exhibit signs and symptoms concerning for biliary colic with RUQ pain and tenderness to palpation. He has also had a mild rise in his LFTs since yesterday, AST 118, ALT 226, ALP 162 with a rising total bilirubin from 2.0 yesterday to 5.9 today. MRCP shows distended gallbladder but no MRI findings consistent with cholecystitis or choledocholithiasis, however there was a mildly dilated common bile duct and proximal pancreatic duct which may be age- related, but may also represent a recently passed gallstone. Patient is on aspirin and plavix, cardiology has been consulted due to recent stent placement and current antiplatelet use for their recommendations prior to planning surgical intervention. Subjective Narrative: Patient seen and examined at bedside this morning. He is frustrated but in no acute distress. He continues to complain of right upper quadrant abdominal pain and tenderness. Overnight the patient was found to be diaphoretic and shaking with a blood pressure 72/35 which responded well to IV fluid bolus, however repeat blood pressures have been borderline low since. Objective Vital Signs - Last 8 Hours Temp Pulse Resp BP Pulse Ox 01/23/19 06:26 94/55 01/23/19 06:15 79/41 01/23/19 05:54 85/50 01/23/19 05:51 80/49 01/23/19 05:39 98.1 F 72/35 92 01/23/19 04:09 98.5 F 82 16 120/58 01/23/19 03:29 98.0 F 108 17 172/65 90 01/23/19 00:48 88 14 147/74 93 Intake and Output 01/22/19 01/23/19 01/23/19 23:59 07:59 15:59 Intake Total 100 / 100 100 / 100 Output Total 0 / 0 Balance 100 / 100 100 / 100 Intake: IV Fluids 100 / 100 100 / 100 Ofirmev 1,000 mg/100 ml 1,000 100 / 100 mg In 100 ml @ 400 mls/hr IVPB Q6HR [facility] Rx#:[id number] Zosyn 3.375 GM In 0.9 % Sodium 100 / 100 Chloride (Mini-Bag +) 100 ML @ 25 mls/hr IVPB Q8HR [facility] Rx#: [id number] Output: Urine 0 / 0 - General physical appearance well developed, well nourished - Eyes PERRL, normal ocular movement - ENT normal pinna, normal nares - Neck Neck exam: trachea midline, no venous distension - Respiratory normal expansion, normal respiratory effort - Cardiovascular Cardiovascular exam: Present: RRR. Absent: murmurs - Abdomen Abdomen: Present: bowel sounds present, tender Abdominal Tenderness: RUQ - Labs 01/23/19 04:02 01/23/19 04:02 Diabetes panel 01/22/19 01/23/19 Range/Units 14:17 04:02 Sodium 139 134 L (136-145) mEq/L Potassium 4.2 3.9 (3.5-5.1) mEq/L Chloride 103 100 (98-107) mEq/L Carbon Dioxide 25 19 L (23-29) mEq/L BUN 18 20 (8-23) mg/dL Creatinine 1.35 H 1.73 H (0.70-1.30) mg/dL Glucose 110 H 141 H (70-105) mg/dL Calcium 10.3 9.6 (8.6-10.3) mg/dL AST 78 H 118 H (13-39) Units/L ALT 192 H 226 H (7-52) Units/L Alkaline Phosphatase 142 H 162 H (34-104) Units/L Albumin 4.3 4.1 (3.5-5.7) g/dL Calcium panel 01/22/19 01/23/19 Range/Units 14:17 04:02 Calcium 10.3 9.6 (8.6-10.3) mg/dL Albumin 4.3 4.1 (3.5-5.7) g/dL Pituitary panel 01/22/19 01/23/19 Range/Units 14:17 04:02 Sodium 139 134 L (136-145) mEq/L Potassium 4.2 3.9 (3.5-5.1) mEq/L Chloride 103 100 (98-107) mEq/L Carbon Dioxide 25 19 L (23-29) mEq/L BUN 18 20 (8-23) mg/dL Creatinine 1.35 H 1.73 H (0.70-1.30) mg/dL Glucose 110 H 141 H (70-105) mg/dL Calcium 10.3 9.6 (8.6-10.3) mg/dL Adrenal panel 01/22/19 01/23/19 Range/Units 14:17 04:02 Sodium 139 134 L (136-145) mEq/L Potassium 4.2 3.9 (3.5-5.1) mEq/L Chloride 103 100 (98-107) mEq/L Carbon Dioxide 25 19 L (23-29) mEq/L BUN 18 20 (8-23) mg/dL Creatinine 1.35 H 1.73 H (0.70-1.30) mg/dL Glucose 110 H 141 H (70-105) mg/dL Calcium 10.3 9.6 (8.6-10.3) mg/dL Total Bilirubin 2.0 H 5.9 H (0.3-1.0) mg/dL AST 78 H 118 H (13-39) Units/L ALT 192 H 226 H (7-52) Units/L Alkaline Phosphatase 142 H 162 H (34-104) Units/L Albumin 4.3 4.1 (3.5-5.7) g/dL Consult Discharge Plan - Plan Referrals: Rubens Churchill MD [Primary Care Provider] - <Link Florian - Last Filed: 01/23/19 18:14> Date of Encounter: 01/23/19 Objective Vital Signs - Last 8 Hours Temp Pulse Resp BP Pulse Ox 01/23/19 14:54 97.7 F 70 16 99/63 92 01/23/19 12:57 98.8 F 01/23/19 10:26 98.0 F 69 16 95/56 95 Intake and Output 01/23/19 01/23/19 01/23/19 07:59 15:59 23:59 Intake Total 100 / 1300 1200 / 1300 Output Total 0 / 75 75 / 75 Balance 100 / 1225 1125 / 1225 Intake: IV Fluids 100 / 1300 1200 / 1300 0.9 % Sodium Chloride 1,000 ML 1000 / 1000 @ 75 mls/hr IVC .[id number] [facility] Rx #:[id number] Ofirmev 1,000 mg/100 ml 1,000 100 / 100 mg In 100 ml @ 400 mls/hr IVPB Q6HR [facility] Rx#:[id number] Zosyn 3.375 GM In 0.9 % Sodium 100 / 200 100 / 200 Chloride (Mini-Bag +) 100 ML @ 25 mls/hr IVPB Q8HR [facility] Rx#: [id number] Output: Urine 0 / 75 75 / 75 Other: # Voids 1 # Bowel Movements 0 - Labs 01/23/19 04:02 01/23/19 04:02 Diabetes panel 01/23/19 Range/Units 04:02 Sodium 134 L (136-145) mEq/L Potassium 3.9 (3.5-5.1) mEq/L Chloride 100 (98-107) mEq/L Carbon Dioxide 19 L (23-29) mEq/L BUN 20 (8-23) mg/dL Creatinine 1.73 H (0.70-1.30) mg/dL Glucose 141 H (70-105) mg/dL Calcium 9.6 (8.6-10.3) mg/dL AST 118 H (13-39) Units/L ALT 226 H (7-52) Units/L Alkaline Phosphatase 162 H (34-104) Units/L Albumin 4.1 (3.5-5.7) g/dL Calcium panel 01/23/19 Range/Units 04:02 Calcium 9.6 (8.6-10.3) mg/dL Albumin 4.1 (3.5-5.7) g/dL Pituitary panel 01/23/19 Range/Units 04:02 Sodium 134 L (136-145) mEq/L Potassium 3.9 (3.5-5.1) mEq/L Chloride 100 (98-107) mEq/L Carbon Dioxide 19 L (23-29) mEq/L BUN 20 (8-23) mg/dL Creatinine 1.73 H (0.70-1.30) mg/dL Glucose 141 H (70-105) mg/dL Calcium 9.6 (8.6-10.3) mg/dL Adrenal panel 01/23/19 Range/Units 04:02 Sodium 134 L (136-145) mEq/L Potassium 3.9 (3.5-5.1) mEq/L Chloride 100 (98-107) mEq/L Carbon Dioxide 19 L (23-29) mEq/L BUN 20 (8-23) mg/dL Creatinine 1.73 H (0.70-1.30) mg/dL Glucose 141 H (70-105) mg/dL Calcium 9.6 (8.6-10.3) mg/dL Total Bilirubin 5.9 H (0.3-1.0) mg/dL AST 118 H (13-39) Units/L ALT 226 H (7-52) Units/L Alkaline Phosphatase 162 H (34-104) Units/L Albumin 4.1 (3.5-5.7) g/dL - Attending Attestation I examined this patient and my medical decision-making was reviewed with the Resident Physician. I agree with the documented findings, disposition and treatment plan as described except to the extent set forth below. The patient is seen and evaluated on afternoon rounds. The acute care surgery team saw him this morning on rounds and I evaluated the patient this afternoon. I personally reviewed all radiologic testing as well as reviewed his laboratory testing. Cholelithiasis or choledocholithiasis has not been demonstrated. Acute cholecystitis has not been demonstrated. I would not recommend any surgery at this time. I would recommend gastroenterology evaluation. I favor a hepatocellular injury of some type possibly around the time of his cardiac catheterization. Link Florian MD FACS
[2019-01-23] MEDS: Magnesium Oxide 400 MG TABLET PO SCH (08:32)
[2019-01-23] MEDS: 0.9 % Sodium Chloride 1,000 ML IVC SCH (14:49)
--- NOTE | 2019-01-23 15:01 | Cardiology Consult Note ---
<Altaf Gamble - Last Filed: 01/23/19 15:10> Date of Encounter: 01/23/19 Time of Encounter: 15:00 Assessment and Plan (1) Biliary colic Current Visit: Yes Status: Acute Per Cardiology: Management per primary service. (2) CAD (coronary artery disease) Current Visit: No Status: Chronic Per Cardiology: Recent catheterization 10/2018 with referral to [facility] and stenting completed 10/2018. Underwent LHC earlier this week: Lesion Findings/Interventions * Left Main Coronary Artery There is a 15% stenosis in the Distal LMCA. * Left Anterior Descending The left anterior descending is angiographically free of significant disease. The 1st Diagonal is small in size.. There is a 80% stenosis in the 1st Diagonal. * Circumflex The Circumflex is angiographically free of significant disease. The 1st Marginal is angiographically free of significant disease. * Right Coronary Artery There is a 50% stenosis in the ostial Proximal RCA. Patent stent. No dampening with engagement Asa and plavix on hold-- ideally would not hold since recent JESSICA. On ACEI, BB. Elevated LFTs, consider adding statin based on hospital course. Qualifiers: Coronary Disease-Associated Artery/Lesion type: [place] artery [place] vs. tr ansplanted heart: [place] heart Associated angina: angina presence unspecified Qualified Code(s): I25.10 - Atherosclerotic heart disease of [place] coronary artery without angina pectoris (3) Preop cardiovascular exam Current Visit: Yes Status: Acute Per Cardiology: LHC this past week showed patent RCA stent; has diagonal one 80% lesion being medically managed. Chest pain-free. Troponin negative 1. Recommend continuation of aspirin and Plavix due to recent JESSICA 10/2018. Will discuss with Dr. Iesha davis on risk stratification-- would consider intermediate risk for planned procedure from a cardiac standpoint if can be done while still on dual antiplatelet therapy. If asa and plavix are to be held would consider high risk. Cardiology will sign off, re-consult as needed, follow-up arranged. All questions answered. Discussion w patient/family: The assessment and plan as outlined above was discussed with the patient and/or family members who expressed understanding and agreement. All questions were answered. Thank you for involving us in the care of your patient. Please call with any questions. History of Present Illness Consult date: 01/23/19 Consult reason: Preop Chief complaint: Abdominal pain History of present illness: Mr. Delgado is a 78 year old male Past Med Surg Social Fam HX - Past Medical History Attestation: Yes The following information was validated with the patient. Source: patient, old records reviewed, obtained from family Medical history: arthritis, coronary artery disease, GERD, hyperlipidemia, hypertension, kidney stones, renal disease Additional medical history: ANGINA. SLEEP APNEA CPAP. FORMER SMOKER Psychiatric history: no psych history - Past Surgical History Surgical History: appendectomy, other Additional surgical history: back. left knee. appendectomy - Social History Smoking Status: Former smoker Smokeless Tobacco Status: No Alcohol use: occasionally Drug use: none - Family History Mother Adopted: [place]: Bri Delgado Family Member Ethnicity: Non- Living Status: Age at : 75 Hx Family Cardiac Disorders: Yes (AAA, CAD) Hx Family Respiratory Disorders: No Hx Family Cancer: No Hx Family GI Disorders: No Hx Family Endocrine Disorder: Yes (brother,) Hx Family Neuromuscular Disorders: No Hx Family Neurologic Disorders: Yes (brother) Hx Family HEENT Disorders: No Hx Family Autoimmune Disorders: No Medications and Allergies DULoxetine [Cymbalta] 30 mg PO DAILY 10/23/16 [History] Lisinopril [Zestril] 5 mg PO DAILY 10/23/16 [History] Aspirin [Lo-Dose Aspirin EC] 81 mg PO DAILY 08/16/18 [History] Terazosin [Hytrin] 5 mg PO HS 11/08/18 [History] PARoxetine HCl [Paroxetine HCl] 10 mg PO DAILY 11/13/18 [History] Clopidogrel [Plavix] 75 mg PO DAILY 12/02/18 [History] Magnesium Oxide [Magnesium] 250 mg PO DAILY 12/02/18 [History] Nitroglycerin [Nitrostat] 0.4 mg SL AD PRN 12/02/18 [History] Atorvastatin Calcium [Lipitor] 80 mg PO DAILY 01/19/19 [History] Metoprolol [Lopressor] 12.5 mg PO HS 01/22/19 [History] Allergy/AdvReac Type Severity Reaction Status Date / Time NSAIDS (Non-Steroidal AdvReac See Verified 01/22/19 13:48 Anti-Inflamma Comments All Systems Review: The remainder of the systems were reviewed and are negative - Cardiovascular Cardiovascular: as per HPI Physical Examination Vital Signs, Last 4 Hours Temp Pulse Resp BP Pulse Ox 01/23/19 14:54 97.7 F 70 16 99/63 92 01/23/19 12:57 98.8 F Results 01/23/19 04:02 01/23/19 04:02 Lab Results Laboratory Tests 01/22/19 01/23/19 01/23/19 14:17 04:02 04:02 Hgb 14.1 Hct 42.1 Creatinine 1.35 H 1.73 H Est GFR (Non-Af Amer) 51 L 38 L AST 118 H ALT 226 H Troponin I < 0.03 ITS Impressions Abdomen/Pelvis CT 01/22/19 13:52 IMPRESSION: 1. No acute intra-abdominal abnormality to account for the patient's symptoms. 2. Mild gallbladder distention without radiodense gallstones. If there is clinical concern for acute cholecystitis, dedicated ultrasound is recommended. 3. Severe diverticulosis. 4. Nonobstructing bilateral nephrolithiasis. 5. Prostatomegaly. D/ / 01/22/2019 14:58:47 Zenia Piña MD / rebecca Interpreting Provider: Zenia Piña MD Chest X-Ray 01/22/19 13:52 IMPRESSION: 1. Bibasilar atelectasis or infiltrates. D/ / Comfort Garcia MD / Comfort Garcia MD Interpreting Provider: Comfort Garcia MD Abdomen MRI 01/22/19 17:54 IMPRESSION: 1. Motion limited evaluation. 2. Distended gallbladder with no MRI findings to suggest acute cholecystitis or choledocholithiasis. 3. Mildly dilated common bile duct and proximal pancreatic duct of uncertain clinical significance. Findings may be age related. Suggest correlation with bilirubin levels. No discrete shouldering at the sphincter of Oddi to suggest an obstructing lesion; however, this cannot be definitely excluded by imaging. D/ / 01/22/2019 22:41:14 Soo Rodriguez MD / iesha Interpreting Provider: Soo Rodriguez MD Chest X-Ray 01/23/19 05:41 IMPRESSION: Increasing left basilar atelectasis. D/ / Donis Celaya MD / Donis Celaya MD Interpreting Provider: Donis Celaya MD Active Medications Aspirin (Aspirin Ec) 81 mg PO DAILY [facility] Stop: 07/25/19 09:01 Atorvastatin Calcium (Lipitor) 80 mg PO DAILY [facility] Stop: 07/25/19 09:01 Last Admin: 01/23/19 08:31 Dose: 80 mg Documented by: Clopidogrel Bisulfate (Plavix) 75 mg PO DAILY [facility] Stop: 07/25/19 09:01 Duloxetine HCl (Cymbalta) 30 mg PO DAILY [facility] Stop: 07/25/19 09:01 Last Admin: 01/23/19 08:31 Dose: 30 mg Documented by: Heparin Sodium (Porcine) (Heparin) 5,000 unit SQ Q12HCO [facility] Stop: 07/24/19 18:01 Last Admin: 01/23/19 05:48 Dose: Not Given Documented by: Sodium Chloride (0.9 % Sodium Chloride) 1,000 mls @ 75 mls/hr IVC .[id number] [facility] Stop: 01/23/19 20:24 Last Admin: 01/23/19 14:49 Dose: 75 mls/hr Documented by: Piperacillin Sod/Tazobactam (Sod 3.375 gm/ Sodium Chloride) 100 mls @ 25 mls/hr IVPB Q8HR [facility] Stop: 07/25/19 00:01 Last Infusion: 01/23/19 14:39 Dose: Infused Documented by: Acetaminophen (Ofirmev 1,000 Mg/100 Ml) 1,000 mg in 100 mls @ 400 mls/hr IVPB Q6HR [facility] Stop: 07/24/19 20:43 Last Infusion: 01/23/19 12:37 Dose: Infused Documented by: Lisinopril (Zestril) 5 mg PO DAILY [facility]; Protocol Stop: 07/25/19 09:01 Last Admin: 01/23/19 08:32 Dose: Not Given Documented by: Magnesium Oxide (Mag-Ox) 400 mg PO DAILY [facility] Stop: 07/25/19 09:01 Last Admin: 01/23/19 08:32 Dose: 400 mg Documented by: Metoprolol Tartrate (Lopressor) 12.5 mg PO HS [facility] Stop: 07/24/19 21:01 Last Admin: 01/22/19 22:11 Dose: Not Given Documented by: Naloxone HCl (Narcan) 0.4 mg IVP Q2MPRN PRN PRN Reason: SEE COMMENTS Stop: 07/24/19 17:32 Nitroglycerin (Nitroglycerin) 0.4 mg SL AD PRN PRN Reason: Chest Pain Stop: 07/24/19 17:49 Ondansetron HCl (Zofran Odt) 4 mg SL Q8HR PRN PRN Reason: Nausea And Vomiting Stop: 07/24/19 17:32 Oxycodone HCl (Oxycodone Oral Conc) 5 mg SL Q4H PRN; Protocol PRN Reason: mild to moderate pain Stop: 07/24/19 17:32 Last Admin: 01/23/19 02:52 Dose: 5 mg Documented by: Paroxetine HCl (Paxil) 10 mg PO DAILY [facility] Stop: 07/25/19 09:01 Last Admin: 01/23/19 08:31 Dose: 10 mg Documented by: Terazosin HCl (Hytrin) 5 mg PO HS [facility] Stop: 07/24/19 21:01 Last Admin: 01/22/19 22:14 Dose: 5 mg Documented by: - Imaging and Cardiology Cardiac cath: report reviewed Consult Discharge Plan - Plan Referrals: Rubens Churchill MD [Primary Care Provider] - <Jane Julian - Last Filed: 01/23/19 16:49> Date of Encounter: 01/23/19 - Attending Attestation I examined this patient and my medical decision-making was reviewed with the MANAGEMENT CONSULTING. I agree with the documented findings, disposition and treatment plan as described. Mr. Delgado presents with severe biliary colic with workup undergoing for surgery per Acute Care Service. We have been asked for preoperative cardiovascular risk assessment prior to undergoing abdominal surgery under general anesthesia. The patient had a recent LHC at [place] in October 2018 then referred to [facility] for PCI. Underwent PCI ostial RCA 11/20/[address] Gonzalez at [facility]. Had a follow up LHC with Dr. Thorne of [facility] earlier this week demonstrating a patent RCA stent with residual disease. Echo done 01/19/2019 demonstrated normal LV systolic function. Patient denies chest pain and endorses fair functional activity. Due to recent PCI performed within the last 3 months, patient will be at moderately high risk for acute stent thrombosis, [place] and cardiac if DAPT is stopped for the procedure. If procedure is urgent and if withholding it would place the patient at imminent danger, then would recommend proceeding with known risk. Recommend restarting low dose aspirin perioperatively. Plavix should be started as soon as possible when safe from a surgical perspective. Assessment and Plan Discussion w patient/family: The assessment and plan as outlined above was discussed with the patient and/or family members who expressed understanding and agreement. All questions were answered. Thank you for involving us in the care of your patient. Please call with any questions. History of Present Illness History of present illness: Mr. Delgado is a 78 year old male All Systems Review: The remainder of the systems were reviewed and are negative Physical Examination Vital Signs, Last 4 Hours Temp Pulse Resp BP Pulse Ox 01/23/19 14:54 97.7 F 70 16 99/63 92 01/23/19 12:57 98.8 F Results 01/23/19 04:02 01/23/19 04:02 Lab Results 01/22/19 01/23/19 01/23/19 14:17 04:02 04:02 WBC 7.7 Hgb 14.1 Hct 42.1 Plt Count 136 L Sodium 134 L Potassium 3.9 Chloride 100 Carbon Dioxide 19 L BUN 20 Creatinine 1.73 H Glucose 141 H Calcium 9.6 Total Bilirubin 5.9 H AST 118 H ALT 226 H Alkaline Phosphatase 162 H Lipase 220 H
--- NOTE | 2019-01-23 15:34 | Event Note ---
Date of Encounter: 01/23/19 Time of Encounter: 15:30 - Cardiology Event Note Discussed with Dr. Julian, will resume asa. Plavix remains on hold per primary. Patient had JESSICA (Resolute) placed to Ostial/Prox RCA 95% lesion at [facility] 10/2018 per review of [facility] records. Addendum to my Cardiology C/S: HPI inadvertently left off: Relevant past apical history of CAD, CK D, HTN, HLD. Presented with episodes of squeezing/aching epigastric pain with concerns of constipation. He reports compliance with medication regimen prior to admission. Denied any chest pain, short of breath, palpitations. Denied any dizziness, syncopal, falls. Denied any active bleeding or blood loss.
--- NOTE | 2019-01-23 16:46 | Event Note ---
<Colleen Escobedo - Last Filed: 01/23/19 16:45> Date of Encounter: 01/23/19 Time of Encounter: 16:45 No indication for surgery at this time. No choledocolithiasis noted on MRCP or CT. rising LFTs and bilirubin. Patient may restart his plavix. Will advance diet to clears. <Link Florian - Last Filed: 01/23/19 18:12> Date of Encounter: 01/23/19 The patient is seen and evaluated and I spoke with the patient his and then his daughter by telephone. His liver function tests appear to be worsening, the MRCP fails to demonstrate choledocholithiasis for biliary tree dilatation. 9 mm is the upper limit of normal. Ultrasound failed to demonstrate a stone. There is no evidence of acute cholecystitis on CT scan, ultrasound, or MRCP. At this point I do not recommend surgery. I do recommend getting gastroenterology involved to rule out a noninfectious hepatocellular injury possibly from contrast material after his heart catheterization on Saturday. We will be glad to follow along with you. We would recommend serial liver function tests. Link Florian MD FACS
--- NOTE | 2019-01-23 20:00 | Internal Med Progress Note ---
Hospitalist Progress Note - Encounter Date of Encounter: 01/23/19 Time of Encounter: 11:00 - Subjective Interval History: Patient still with right upper quadrant discomfort this morning on exam Total bili increasing on labs - Exam Vitals: Temp Pulse Resp BP Pulse Ox 97.7 F 70 16 98/58 93 01/23/19 19:44 01/23/19 19:44 01/23/19 19:44 01/23/19 19:44 01/23/19 19:44 Exam: Gen.: Nonacute distress, alert and oriented 3 ENT: Mucosal membranes moist Respiratory: Lungs are clear to auscultation bilaterally without any wheezing rhonchi or rales Cardiovascular: Normal S1 and S2 regular rate rhythm no murmurs rubs or gallops Abdomen: Soft, nontender and nondistended with positive bowel sounds Extremities: No lower extremity edema Skin: Normal color - Assessment and Plan (1) Upper abdominal pain Current Visit: Yes Status: Acute Assessment and Plan: Patient with right upper quadrant tenderness to palpation on physical exam. He was noted to have elevated transaminases on admission. CT of the abdomen showed no acute intra-abdominal abnormalities but mild gallbladder distention was seen without radiodense gallstones. Liver ultrasound on 01/20/19 showed small amount of sludge in gallbladder. MRCP showed no evidence of choledocholithiasis General surgery consulted with recommendations for medical management and to follow serial transaminases (2) Elevated transaminase level Current Visit: No Status: Acute Assessment and Plan: Patient found to have a total bilirubin 2.0 increased to 5.9 this morning Continue to trend serial liver enzymes (3) Biliary sludge Current Visit: Yes Status: Acute Assessment and Plan: Liver ultrasound on 01/20/19 showed small amount of sludge in gallbladder. Patient with right upper quadrant tenderness to palpation on exam as above Surgery consulted with recommendations as above (4) CAD (coronary artery disease) Current Visit: No Status: Chronic Assessment and Plan: Continue aspirin, Plavix, beta damaris and SUGAR inhibitor (5) CKD (chronic kidney disease) Current Visit: No Status: Chronic Assessment and Plan: Creatinine 1.35 on admission up to 1.73 today Will continue gentle IV fluids Continue to monitor (6) HLD (hyperlipidemia) Current Visit: Yes Status: Acute Assessment and Plan: Continue statin (7) Mood disorder Current Visit: Yes Status: Acute Assessment and Plan: Continue home medications (8) DVT prophylaxis Current Visit: No Status: Acute DVT Prophylaxis: Heparin subcutaneous - Time Spent with Patient Total time spent is greater than 50% in coordination of care (as documented) at patient's floor/unit and/or counseling patient: Internal Medicine: Result - Labs CBC & Chem 7: 01/23/19 04:02 01/23/19 04:02 Labs: Short CBC 01/23/19 Range/Units 04:02 WBC 7.7 (4.3-11.1) K/mcL Hgb 14.1 (12.9-16.9) g/dL Hct 42.1 (37.5-50.1) % Plt Count 136 L (140-400) K/mcL Neutrophils # 7.2 (1.6-8.9) K/mcL BMP 01/23/19 04:02 Sodium 134 L Potassium 3.9 Chloride 100 Carbon Dioxide 19 L BUN 20 Creatinine 1.73 H Glucose 141 H Calcium 9.6 Liver Function 01/23/19 Range/Units 04:02 Total Bilirubin 5.9 H (0.3-1.0) mg/dL AST 118 H (13-39) Units/L ALT 226 H (7-52) Units/L Alkaline Phosphatase 162 H (34-104) Units/L Albumin 4.1 (3.5-5.7) g/dL - Impressions Impressions Abdomen/Pelvis CT 01/22/19 13:52 IMPRESSION: 1. No acute intra-abdominal abnormality to account for the patient's symptoms. 2. Mild gallbladder distention without radiodense gallstones. If there is clinical concern for acute cholecystitis, dedicated ultrasound is recommended. 3. Severe diverticulosis. 4. Nonobstructing bilateral nephrolithiasis. 5. Prostatomegaly. D/ / 01/22/2019 14:58:47 Zenia Piña MD / rebecca Interpreting Provider: Zenia Piña MD Abdomen MRI 01/22/19 17:54 IMPRESSION: 1. Motion limited evaluation. 2. Distended gallbladder with no MRI findings to suggest acute cholecystitis or choledocholithiasis. 3. Mildly dilated common bile duct and proximal pancreatic duct of uncertain clinical significance. Findings may be age related. Suggest correlation with bilirubin levels. No discrete shouldering at the sphincter of Oddi to suggest an obstructing lesion; however, this cannot be definitely excluded by imaging. D/ / 01/22/2019 22:41:14 Soo Rodriguez MD / iesha Interpreting Provider: Soo Rodriguez MD Chest X-Ray 01/23/19 05:41 IMPRESSION: Increasing left basilar atelectasis. D/ / Donis Celaya MD / Donis Celaya MD Interpreting Provider: Dnois Celaya MD Consult Discharge Plan - Plan Referrals: Rubens Churchill MD [Primary Care Provider] - (4) CAD (coronary artery disease) Qualifiers: Coronary Disease-Associated Artery/Lesion type: [place] artery [place] vs. transplanted heart: [place] heart Associated angina: angina presence unspecified Qualified Code(s): I25.10 - Atherosclerotic heart disease of [place] coronary artery without angina pectoris (5) CKD (chronic kidney disease) Qualifiers: Chronic kidney disease stage: stage 3 (moderate) Qualified Code(s): N18.3 - Chronic kidney disease, stage 3 (moderate) (6) HLD (hyperlipidemia) Qualifiers: Hyperlipidemia type: unspecified Qualified Code(s): E78.5 - Hyperlipidemia, unspecified
[2019-01-24] MEDS: Piperacillin/Tazobactam 3.375 GM in 0.9 % Sodium Chloride Mini Bag 100 ML IVPB SCH ×4 (00:26→23:56)
[2019-01-24] MEDS ORDERED: traMADol 50 MG TABLET PO ONE (02:05)
[2019-01-24] MEDS: 0.9 % Sodium Chloride 1,000 ML IVC SCH ×2 (02:55→10:51)
[2019-01-24] MEDS: Acetaminophen IV 1,000 MG/100 ML INFUS..BTL IVPB SCH ×2 (05:35→12:14)
--- NOTE | 2019-01-24 05:46 | Event Note ---
Date of Encounter: 01/24/19 Time of Encounter: 02:00 Alerted by pts. nurse Christen, RN that pt. was reporting epigastric pain. Pt has oxycodone ordered but was hypotensive at 116/66. One-time dose of Ultram 50 mg PO ordered. D/t pts. elevated liver enzymes, recommended daily dosing of Ultram is 100 mg total. Nurse reported at 02:53 that the Ultram was administered but pt. stated abdominal pain was now 9/10 and getting worse. VS at the time: 98.1F temp, HR 72, BP 129/67, SpO2 95% on RA. Alerted by nurse again at 03:18 that pain was becoming worse. Ofirmev ordered by Dr. Toussaint for 06:00. Nurse instructed pt. that pain medication options are limited d/t his hypotension, kidney dysfunction, and elevated liver enzymes. Lidocaine patches contraindicated d/t risk for toxicity d/t liver dysfunction. Alerted at 04:58 by nurse that pt. was reporting pain was now moving up into his chest and was shaking. Pt. had similar symptoms last night as well. EKG ordered. Asked to come see pt. at 05:12 d/t pt. yelling out in pain and shaking uncontrollably. Went to see the pt. who was kicking his legs and stating that his abdomen was "killing him". I told the pt. that we would give the Ofirmev dose early. EKG done while I was present which showed Afib w/RVR. Pt. denied hx of Afib. I reiterated to the pt. that pain medication options were limited d/t his current condition. I then asked the pt. if he drinks alcohol. Pt. stated that he drinks beer daily (2-3). D/t concern for possible alcohol withdrawal based on pts. symptoms, blood alcohol level ordered with a.m. labs. CIWA protocol ordered. Instructed nurse to get second peripheral IV access in order to start Cardizem gtt. Pt. had LHC earlier this week. According to notes, Surgery not recommended as imaging of abdomen shows no cholecystitis or cholelithiasis. Pt. showing signs of confusion (thinking Adonay Peraza is President) and RR 30-40. Blood glucose 106. Nurse in structed to place BiPAP on pt. Stat ABG ordered and RT notified. ABG results showed pH 7.427, pCO2 25.5, pO2 54.9, HCO3 16.8, BE -6.0, SO2 89.7%. Troponin ordered. Urine is dark. D/t confusion, U/A with reflex micro and culture ordered stat. Will continue to monitor this pt. closely. A.M. team to be briefed. Nurse instructed to continue monitoring pt. very closely and alert me immediately of any adverse changes.
[2019-01-24] MEDS ORDERED: *HR* LORazepam 2 MG/ML VIAL IVP PRN ×3 (06:01)
[2019-01-24 06:11] LABS: ABG Base Excess -6 mEq/L (-2 to 3); ABG HCO3 17 mEq/L (21-27); ABG Oxygen Saturation 90 % (95-98); ABG PCO2 26 mmHg (35-45); ABG PH 7.43 pH Units (7.32-7.45); ABG PO2 55 mmHg (85-104); ABG TCO2 18 mEq/L (20-26)
[2019-01-24 06:43] LABS: Bilirubin,Urine Moderate (Negative); Blood,Urine Moderate (Negative); Clarity,Urine Turbid (Clear); Color,Urine Dark Yellow (Yellow); Glucose,Urine (UA) Normal (Normal); Ketones,Urine Negative (Negative); Leukocyte Esterase,Urine Negative (Negative); Nitrite,Urine Negative (Negative); Protein,Urine 100 mg/dL (Neg-Trace); Specific Gravity,Urine 1.018 (1.010-1.025)
[2019-01-24 06:45] LABS: Hyaline Casts,Urine None Seen per lpf (None-Few); RBC,Urine 0-3 per hpf (0-3); Squamous Epithelial Cell,Urine Moderate per lpf (None-Few)
[2019-01-24 06:56] LABS: Bacteria,Urine Moderate per hpf (None-Few)
[2019-01-24 07:08] LABS: Hematocrit 34.3 % (37.5-50.1); Mean Corpuscular HGB Conc 35.3 g/dL (31.6-35.5); Mean Corpuscular Hemoglobin 30.9 pg (28.0-33.3); Mean Corpuscular Volume 87.7 fL (83.0-100.0); Mean Platelet Volume 8.5 fL (9.4-12.4); Platelet Count 115 K/mcL (140-400); Red Blood Count 3.91 M/mcL (4.19-5.50); Red Cell Distribution Width 13.4 % (11.5-14.5)
[2019-01-24 07:09] LABS: Hemoglobin 12.1 g/dL (12.9-16.9)
[2019-01-24 07:26] LABS: Albumin 3.6 g/dL (3.5-5.7); Albumin/Globulin Ratio 1.7 (1.1-2.2); Bilirubin,Direct 5.8 mg/dL (0.0-0.2); Bilirubin,Indirect 2.2 mg/dL (0.0-1.2); Globulin 2.1 g/dL (2.4-3.5); Total Protein 5.7 g/dL (6.4-8.9)
[2019-01-24 07:27] LABS: Amylase 12 Units/L (29-103); BUN/Creatinine Ratio 16 (6-26); Blood Urea Nitrogen 28 mg/dL (8-23); Calcium 8.7 mg/dL (8.6-10.3); Carbon Dioxide 18 mEq/L (23-29); Chloride 101 mEq/L (98-107); Ethanol < 10 mg/dL (Less than 10); Glucose 107 mg/dL (70-105); Lipase 17 Units/L (11-82); Osmolality,Calculated 276 (280-300); Potassium 3.5 mEq/L (3.5-5.1); Sodium 130 mEq/L (136-145); eGFR For Non-African Americans 37 (> 60)
[2019-01-24] MEDS: *HR* Heparin 5,000 UNIT/ML VIAL SQ SCH ×2 (08:13→20:47)
--- NOTE | 2019-01-24 08:18 | Internal Med Progress Note ---
Hospitalist Progress Note - Encounter Date of Encounter: 01/24/19 Time of Encounter: 11:00 - Subjective Interval History: Patient overnight still with intense abdominal pain with worsening transaminases this a.m. Patient also overnight complained of chest discomfort with elevated troponin and an episode of A. fib with RVR overnight which has now converted to normal sinus rhythm. In addition, patient also with confusion overnight but might have some baseline memory problems and suspect owning; patient alert and oriented this morning per nursing - Exam Vitals: Temp Pulse Resp BP Pulse Ox 99.9 F H 94 18 116/65 92 01/24/19 08:07 01/24/19 08:07 01/24/19 08:07 01/24/19 08:07 01/24/19 08:07 Exam: Gen.: Nonacute distress, alert and oriented 3 ENT: Mucosal membranes moist Respiratory: Lungs are clear to auscultation bilaterally without any wheezing rhonchi or rales Cardiovascular: Normal S1 and S2 regular rate rhythm no murmurs rubs or gallops Abdomen: Generalized Tenderness to palpation Extremities: No lower extremity edema Skin: Normal color - Assessment and Plan (1) Upper abdominal pain Current Visit: Yes Status: Acute Assessment and Plan: Patient continues to complain of upper abdominal pain. Patient's transaminases continues to worsen this morning CT of the abdomen showed no acute intra-abdominal abnormalities but mild gallbladder distention was seen without radiodense gallstones. Liver ultrasound on 01/20/19 showed small amount of sludge in gallbladder. MRCP showed distended gallbladder with no evidence of cholecystitis or choledocholithiasis; also noted was mildly dilated common bile duct and proximal pancreatic duct. General surgery consulted with recommendations for medical management GI consulted with recommendations for a HIDA scan on 01/25/19 and possibly ERCP at later date Patient is to receive no pain medications after midnight asking skew testing in the morning (2) Elevated transaminase level Current Visit: No Status: Acute Assessment and Plan: T.Bili: 2.0->5.0->8.0 D.Bili: 1.2->5.8 I.Bili 0.8->2.2 AST: 78->118->72 ALT: 192->226->154 GI with recommendations as above (3) Biliary sludge Current Visit: Yes Status: Acute Assessment and Plan: Liver ultrasound on 01/20/19 showed small amount of sludge in gallbladder. Patient with right upper quadrant tenderness to palpation on exam as above Surgery consulted with recommendations as above (4) Elevated troponin Current Visit: Yes Status: Acute Assessment and Plan: Patient complaining of chest discomfort overnight and found to have elevated troponin of 0.08 Patient was also noted to have A. fib with RVR which converted to normal sinus rhythm after initiating Cardizem drip Due to coronary arterial disease as below, cardiology has been consulted and appreciate recommendations (5) CAD (coronary artery disease) Current Visit: No Status: Chronic Assessment and Plan: Patient with recent RCA stent Continue aspirin, Plavix, beta damaris and SUGAR inhibitor (6) CKD (chronic kidney disease) Current Visit: No Status: Chronic Assessment and Plan: Patient with acute on chronic CKD stage III Creatinine: 1.35-> 1.73->1.80 Will continue IV fluids Continue to monitor (7) HLD (hyperlipidemia) Current Visit: Yes Status: Acute Assessment and Plan: Continue statin (8) Mood disorder Current Visit: Yes Status: Acute Assessment and Plan: Patient with confusion overnight Suspect patient has some memory issues at baseline and confusion could be due to Patient alert and oriented this morning Will continue to monitor Continue home medications DVT Prophylaxis: Subcutaneous heparin - Time Spent with Patient Total time spent is greater than 50% in coordination of care (as documented) at patient's floor/unit and/or counseling patient: Internal Medicine: Result - Labs CBC & Chem 7: 01/24/19 06:53 01/24/19 06:53 Labs: Short CBC 01/24/19 Range/Units 06:53 WBC 7.3 (4.3-11.1) K/mcL Hgb 12.1 L D (12.9-16.9) g/dL Hct 34.3 L (37.5-50.1) % Plt Count 115 L (140-400) K/mcL BMP 01/24/19 06:53 Sodium 130 L Potassium 3.5 Chloride 101 Carbon Dioxide 18 L BUN 28 H Creatinine 1.80 H Glucose 107 H Calcium 8.7 Cardiac Enzymes 01/24/19 Range/Units 06:53 Troponin I 0.08 H* (< 0.04) ng/mL Liver Function 01/24/19 Range/Units 06:53 Total Bilirubin 8.0 H (0.3-1.0) mg/dL Direct Bilirubin 5.8 H (0.0-0.2) mg/dL AST 72 H (13-39) Units/L ALT 154 H (7-52) Units/L Alkaline Phosphatase 156 H (34-104) Units/L Albumin 3.6 (3.5-5.7) g/dL Urine 01/24/19 Range/Units 06:30 Urine Color Dark Yellow (Yellow) Urine Clarity Turbid A (Clear) Urine pH 6.0 (5.0-8.0) pH Units Ur Specific [place] 1.018 (1.010-1.025) Urine Protein 100 H (Neg-Trace) mg/dL Urine Glucose (UA) Normal (Normal) mg/dL - ABG Interpretation ABG results: ABG ABG pH 7.43 pH Units (7.32-7.45) 01/24/19 06:02 ABG pCO2 26 mmHg (35-45) L 01/24/19 06:02 ABG pO2 55 mmHg (85-104) L 01/24/19 06:02 ABG O2 Saturation 90 % (95-98) L 01/24/19 06:02 - Impressions Impressions Abdomen/Pelvis CT 01/22/19 13:52 IMPRESSION: 1. No acute intra-abdominal abnormality to account for the patient's symptoms. 2. Mild gallbladder distention without radiodense gallstones. If there is clinical concern for acute cholecystitis, dedicated ultrasound is recommended. 3. Severe diverticulosis. 4. Nonobstructing bilateral nephrolithiasis. 5. Prostatomegaly. D/ / 01/22/2019 14:58:47 Zenia Piña MD / rebecca Interpreting Provider: Zenia Piña MD Consult Discharge Plan - Plan Referrals: Rubens Churchill MD [Primary Care Provider] - (5) CAD (coronary artery disease) Qualifiers: Coronary Disease-Associated Artery/Lesion type: [place] artery [place] vs. transplanted heart: [place] heart Associated angina: angina presence unspecified Qualified Code(s): I25.10 - Atherosclerotic heart disease of [place] coronary artery without angina pectoris (6) CKD (chronic kidney disease) Qualifiers: Chronic kidney disease stage: stage 3 (moderate) Qualified Code(s): N18.3 - C hronic kidney disease, stage 3 (moderate) (7) HLD (hyperlipidemia) Qualifiers: Hyperlipidemia type: unspecified Qualified Code(s): E78.5 - Hyperlipidemia, unspecified
[2019-01-24] MEDS: OXYCODONE Oral CONC 10 MG/0.5 ML ORAL.SYG SL PRN ×3 (09:38→20:52)
[2019-01-24] MEDS: Magnesium Oxide 400 MG TABLET PO SCH (09:44)
[2019-01-24] MEDS: Aspirin Enteric Coated 81 MG Tablet PO SCH (09:44)
--- NOTE | 2019-01-24 10:37 | AcuteCareSurgery Progress Note ---
<FannyColleen N - Last Filed: 01/24/19 10:32> Date of Encounter: 01/24/19 Time of Encounter: 10:32 - Assessment and Plan (1) Biliary colic Current Visit: Yes Status: Acute Patient continues to have elevation of his creatinine, up to 8.0 today. His LFTs and lipase have trended down. CT, ultrasound, and MRCP did not show any evidence for choledocholithiasis or cholecystitis Recommend further workup with GI or dump grader for possible evaluation for hepatocellular injury that may be contributing to patient's symptoms and rising bilirubin Subjective Narrative: Patient seen and examined at bedside this morning. He continues to have right upper quadrant abdominal pain with significant tenderness. His bilirubin is significant elevated to 8.0 today with erect bilirubin of 5.8. He is also had a 2g drop in hemoglobin, decreasing platelets, and rising creatinine. Objective Vital Signs - Last 8 Hours Temp Pulse Resp BP Pulse Ox 01/24/19 08:07 99.9 F H 94 18 116/65 92 01/24/19 07:59 92 01/24/19 06:45 99 101/60 01/24/19 06:30 97 104/66 01/24/19 06:15 103 150/74 01/24/19 05:30 99 F 129 157/75 01/24/19 04:18 98.1 F 66 15 156/80 91 Intake and Output 01/23/19 01/24/19 01/24/19 23:59 07:59 15:59 Intake Total 560 / 1860 1200 / 1304.6 104.6 / 1304.6 Output Total 125 / 350 300 / 400 100 / 400 Balance 435 / 1510 900 / 904.6 4.6 / 904.6 Intake: IV Fluids 200 / 1500 1200 / 1304.6 104.6 / 1304.6 0.9 % Sodium Chloride 1,000 ML 1000 / 1000 @ 75 mls/hr IVC .[id number] [facility] Rx #:[id number] Cardizem 50 MG In 0.9 % Sodium 4.6 / 4.6 Chloride 40 ML @ 2.5 MG/HR 2.5 mls/hr IVC CONT [facility] Rx#: [id number] Ofirmev 1,000 mg/100 ml 1,000 100 / 200 200 / 200 mg In 100 ml @ 400 mls/hr IVPB Q6HR [facility] Rx#:[id number] Zosyn 3.375 GM In 0.9 % Sodium 100 / 300 100 / 100 Chloride (Mini-Bag +) 100 ML @ 25 mls/hr IVPB Q8HR [facility] Rx#: [id number] Oral 360 / 360 0 / 0 Output: Urine 125 / 350 300 / 400 100 / 400 Other: Meal NPO Weight 105.2 kg Blood Glucose* 106 Patient Weight 01/24/19 23:59 Weight 105.2 kg - General physical appearance well developed, well nourished - Eyes PERRL, normal ocular movement - ENT normal pinna, normal nares - Neck Neck exam: no masses, no bruits, trachea midline - Respiratory normal expansion, normal respiratory effort - Cardiovascular Cardiovascular exam: Present: RRR. Absent: murmurs - Abdomen Abdomen: Present: tender Abdominal Tenderness: RUQ - Labs 01/24/19 06:53 01/24/19 06:53 Diabetes panel 01/24/19 01/24/19 Range/Units 06:53 06:53 Sodium 130 L (136-145) mEq/L Potassium 3.5 (3.5-5.1) mEq/L Chloride 101 (98-107) mEq/L Carbon Dioxide 18 L (23-29) mEq/L BUN 28 H (8-23) mg/dL Creatinine 1.80 H (0.70-1.30) mg/dL Glucose 107 H (70-105) mg/dL Calcium 8.7 (8.6-10.3) mg/dL AST 72 H (13-39) Units/L ALT 154 H (7-52) Units/L Alkaline Phosphatase 156 H (34-104) Units/L Albumin 3.6 (3.5-5.7) g/dL Calcium panel 01/24/19 01/24/19 Range/Units 06:53 06:53 Calcium 8.7 (8.6-10.3) mg/dL Albumin 3.6 (3.5-5.7) g/dL Pituitary panel 01/24/19 Range/Units 06:53 Sodium 130 L (136-145) mEq/L Potassium 3.5 (3.5-5.1) mEq/L Chloride 101 (98-107) mEq/L Carbon Dioxide 18 L (23-29) mEq/L BUN 28 H (8-23) mg/dL Creatinine 1.80 H (0.70-1.30) mg/dL Glucose 107 H (70-105) mg/dL Calcium 8.7 (8.6-10.3) mg/dL Adrenal panel 01/24/19 01/24/19 Range/Units 06:53 06:53 Sodium 130 L (136-145) mEq/L Potassium 3.5 (3.5-5.1) mEq/L Chloride 101 (98-107) mEq/L Carbon Dioxide 18 L (23-29) mEq/L BUN 28 H (8-23) mg/dL Creatinine 1.80 H (0.70-1.30) mg/dL Glucose 107 H (70-105) mg/dL Calcium 8.7 (8.6-10.3) mg/dL Total Bilirubin 8.0 H (0.3-1.0) mg/dL AST 72 H (13-39) Units/L ALT 154 H (7-52) Units/L Alkaline Phosphatase 156 H (34-104) Units/L Albumin 3.6 (3.5-5.7) g/dL Consult Discharge Plan - Plan Referrals: Rubens Churchill MD [Primary Care Provider] - <Link Florian T - Last Filed: 01/24/19 12:38> Date of Encounter: 01/24/19 Objective Vital Signs - Last 8 Hours Temp Pulse Resp BP Pulse Ox 01/24/19 11:42 97.5 F L 84 17 121/72 95 01/24/19 08:07 99.9 F H 94 18 116/65 92 01/24/19 07:59 92 01/24/19 06:45 99 101/60 01/24/19 06:30 97 104/66 01/24/19 06:15 103 150/74 01/24/19 05:30 99 F 129 157/75 Intake and Output 01/23/19 01/24/19 01/24/19 23:59 07:59 15:59 Intake Total 560 / 1860 1200 / 1304.6 104.6 / 1304.6 Output Total 125 / 350 300 / 400 100 / 400 Balance 435 / 1510 900 / 904.6 4.6 / 904.6 Intake: IV Fluids 200 / 1500 1200 / 1304.6 104.6 / 1304.6 0.9 % Sodium Chloride 1,000 ML 1000 / 1000 @ 75 mls/hr IVC .[id number] [facility] Rx #:[id number] Cardizem 50 MG In 0.9 % Sodium 4.6 / 4.6 Chloride 40 ML @ 2.5 MG/HR 2.5 mls/hr IVC CONT [facility] Rx#: [id number] Ofirmev 1,000 mg/100 ml 1,000 100 / 200 200 / 200 mg In 100 ml @ 400 mls/hr IVPB Q6HR [facility] Rx#:[id number] Zosyn 3.375 GM In 0.9 % Sodium 100 / 300 100 / 100 Chloride (Mini-Bag +) 100 ML @ 25 mls/hr IVPB Q8HR [facility] Rx#: [id number] Oral 360 / 360 0 / 0 Output: Urine 125 / 350 300 / 400 100 / 400 Other: Meal NPO Weight 105.2 kg Blood Glucose* 106 103 Patient Weight 01/24/19 23:59 Weight 105.2 kg - Labs 01/24/19 06:53 01/24/19 06:53 Diabetes panel 01/24/19 01/24/19 Range/Units 06:53 06:53 Sodium 130 L (136-145) mEq/L Potassium 3.5 (3.5-5.1) mEq/L Chloride 101 (98-107) mEq/L Carbon Dioxide 18 L (23-29) mEq/L BUN 28 H (8-23) mg/dL Creatinine 1.80 H (0.70-1.30) mg/dL Glucose 107 H (70-105) mg/dL Calcium 8.7 (8.6-10.3) mg/dL AST 72 H (13-39) Units/L ALT 154 H (7-52) Units/L Alkaline Phosphatase 156 H (34-104) Units/L Albumin 3.6 (3.5-5.7) g/dL Calcium panel 01/24/19 01/24/19 Range/Units 06:53 06:53 Calcium 8.7 (8.6-10.3) mg/dL Albumin 3.6 (3.5-5.7) g/dL Pituitary panel 01/24/19 Range/Units 06:53 Sodium 130 L (136-145) mEq/L Potassium 3.5 (3.5-5.1) mEq/L Chloride 101 (98-107) mEq/L Carbon Dioxide 18 L (23-29) mEq/L BUN 28 H (8-23) mg/dL Creatinine 1.80 H (0.70-1.30) mg/dL Glucose 107 H (70-105) mg/dL Calcium 8.7 (8.6-10.3) mg/dL Adrenal panel 01/24/19 01/24/19 Range/Units 06:53 06:53 Sodium 130 L (136-145) mEq/L Potassium 3.5 (3.5-5.1) mEq/L Chloride 101 (98-107) mEq/L Carbon Dioxide 18 L (23-29) mEq/L BUN 28 H (8-23) mg/dL Creatinine 1.80 H (0.70-1.30) mg/dL Glucose 107 H (70-105) mg/dL Calcium 8.7 (8.6-10.3) mg/dL Total Bilirubin 8.0 H (0.3-1.0) mg/dL AST 72 H (13-39) Units/L ALT 154 H (7-52) Units/L Alkaline Phosphatase 156 H (34-104) Units/L Albumin 3.6 (3.5-5.7) g/dL - Attending Attestation I examined this patient and my medical decision-making was reviewed with the Resident Physician. I agree with the documented findings, disposition and treatment plan as described except to the extent set forth below. The patient is seen and evaluated on morning rounds. He appears more jaundice. Several hours later I reordered his bilirubin which is now up to 8. He continues to have elevation of his transaminase enzymes. I believe that this process may be hepatocellular and not related to any type of biliary obstruction. Further management by gastroenterology and possibly hepatology. He may require transfer to tertiary [facility] Link Florian MD FACS
--- NOTE | 2019-01-24 13:42 | Electrocardiograph Report ---
[place] [address] Test Date: 2019-01-23 Pat Name: Donal Delgado Department: 115 Room: 3A43 Gender: M Electrolytic De Scaler: : 1940 Requested By: Donal Rainey Order Number: [id number] Reading MD: Sarbjit John Measurements Intervals [place] Rate: 70 P: [place]: 0 QRS: 31 QRSD: 93 T: 17 QT: 359 QTc: 379 Interpretive Statements Sinus rhythm Non specific ST T changes Abnormal R-wave progression, early transition Electronically Signed On 01-24-2019 13:40:42 EDT by Sarbjit John
--- NOTE | 2019-01-24 14:05 | Event Note ---
Date of Encounter: 01/24/19 Time of Encounter: 14:00 - Cardiology Event Note Re-consult for concerns of A. fib. ECG reviewed and interpretation said afib, however artifact and upon review ECG showed regular rate and rhythm-- ST. Telemetry reviewed with no episodes of atrial fibrillation noted. A few brief e pisodes of atrial tachycardia. ECG and strips reviewed and discussed with Dr. Radha Velazco. No further recommendations. Continue to monitor telemetry. Case discussed with Dr. Florian, now back on aspirin and Plavix with no plans for surgical intervention. Cardiology signed off.
[2019-01-24 16:25] LABS: INR 1.3; Prothrombin Time 14.7 Seconds (9.4-12.1)
[2019-01-24] MEDS ORDERED: Mag Hydrox/Al Hydrox/Simeth 30 ML UDC PO PRN (17:03)
[2019-01-24] MEDS: hydrOXYzine pamoate 25 MG CAPSULE PO PRN ×2 (17:35→23:56)
--- NOTE | 2019-01-24 19:08 | Electrocardiograph Report ---
[place] Test Date: 2019-01-22 Pat Name: Donal Delgado Department: [id number] Room: 3A43 Gender: M Branch Services Manager: : 1940 Requested By: Donal Galvin Order Number: [id number] Reading MD: Jerrod Garcia Measurements Intervals [place] Rate: 65 P: 31 [place]: 208 QRS: 23 QRSD: 95 T: 29 QT: 384 QTc: 400 Interpretive Statements Sinus rhythm Multiple premature complexes, vent & supraven Abnormal R-wave progression, early transition Electronically Signed On 01-24-2019 19:06:36 EDT by Jerrod Garcia
[2019-01-25] MEDS: *HR* Heparin 5,000 UNIT/ML VIAL SQ SCH ×2 (05:42→18:05)
[2019-01-25] MEDS: 0.9 % Sodium Chloride 1,000 ML IVC SCH (05:42)
[2019-01-25] MEDS: Piperacillin/Tazobactam 3.375 GM in 0.9 % Sodium Chloride Mini Bag 100 ML IVPB SCH ×2 (07:47→16:00)
[2019-01-25] MEDS: Aspirin Enteric Coated 81 MG Tablet PO SCH (07:49)
[2019-01-25] MEDS: Magnesium Oxide 400 MG TABLET PO SCH (07:50)
[2019-01-25] MEDS ORDERED: Bisacodyl 10 MG RECTAL SUPPOSITORY RC PRN (08:12)
--- NOTE | 2019-01-25 08:13 | AcuteCareSurgery Progress Note ---
<Colleen Escobedo N - Last Filed: 01/25/19 08:11> Date of Encounter: 01/25/19 Time of Encounter: 08:11 - Assessment and Plan (1) Biliary colic Current Visit: Yes Status: Acute 78-year-old male admitted with right upper quadrant abdominal pain, francis saminitis, and progressively increasing hyperbilirubinemia CT, ultrasound, and MRCP do not show any evidence conclusive for choledocholithiasis or cholecystitis Gastroenterology was consulted and recommended a HIDA scan We will follow up on results of the HIDA scan, but due to worsening liver functi on recommend consult with hepatology and possible transfer to tertiary care center Subjective Narrative: Patient continues to have right upper quadrant abdominal pain classified as stabbing in nature. Bilirubin significantly elevated over the past few days, labs unavailable from this morning. GI evaluated the patient and recommend HIDA scan today. Objective Vital Signs - Last 8 Hours Temp Pulse Resp BP Pulse Ox 01/25/19 05:12 97.8 F 75 18 125/71 90 Intake and Output 01/24/19 01/25/19 01/25/19 23:59 07:59 15:59 Intake Total 1100 / 2604.6 100 / 100 Output Total 300 / 900 0 / 0 Balance 800 / 1704.6 100 / 100 Intake: IV Fluids 1100 / 2604.6 100 / 100 0.9 % Sodium Chloride 1,000 ML 1000 / 1000 @ 75 mls/hr IVC .[id number] [facility] Rx #:[id number] Zosyn 3.375 GM In 0.9 % Sodium 100 / 300 100 / 100 Chloride (Mini-Bag +) 100 ML @ 25 mls/hr IVPB Q8HR [facility] Rx#: [id number] Oral 0 / 0 0 / 0 Output: Urine 300 / 900 0 / 0 Other: Weight 106.7 kg Blood Glucose* 107 110 Patient Weight 01/25/19 23:59 Weight 106.7 kg - General physical appearance well developed, well nourished - Eyes PERRL, normal ocular movement - ENT normal pinna, normal nares - Neck Neck exam: trachea midline, no venous distension - Respiratory normal expansion, normal respiratory effort - Cardiovascular Cardiovascular exam: Present: RRR - Abdomen Abdomen: Present: tender Abdominal Tenderness: RUQ - Labs 01/24/19 06:53 01/24/19 06:53 Consult Discharge Plan - Plan Referrals: Rubens Churchill MD [Primary Care Provider] - <Dominic Rolon F - Last Filed: 01/25/19 09:02> Date of Encounter: 01/25/19 - Assessment and Plan (1) Biliary colic Current Visit: Yes Status: Acute (2) Hyperbilirubinemia Current Visit: Yes Status: Acute (3) Elevated transaminase level Current Visit: No Status: Acute (4) CAD (coronary artery disease) Current Visit: No Status: Chronic Qualifiers: Coronary Disease-Associated Artery/Lesion type: [place] artery [place] vs. transplanted heart: [place] heart Associated angina: angina presence unspecified Qualified Code(s): I25.10 - Atherosclerotic heart disease of [place] coronary artery without angina pectoris Objective Vital Signs - Last 8 Hours Temp Pulse Resp BP Pulse Ox 01/25/19 05:12 97.8 F 75 18 125/71 90 Intake and Output 01/24/19 01/25/19 01/25/19 23:59 07:59 15:59 Intake Total 1100 / 2604.6 100 / 100 Output Total 300 / 900 0 / 0 Balance 800 / 1704.6 100 / 100 Intake: IV Fluids 1100 / 2604.6 100 / 100 0.9 % Sodium Chloride 1,000 ML 1000 / 1000 @ 75 mls/hr IVC .[id number] [facility] Rx #:[id number] Zosyn 3.375 GM In 0.9 % Sodium 100 / 300 100 / 100 Chloride (Mini-Bag +) 100 ML @ 25 mls/hr IVPB Q8HR [facility] Rx#: [id number] Oral 0 / 0 0 / 0 Output: Urine 300 / 900 0 / 0 Other: Weight 106.7 kg Blood Glucose* 107 110 Patient Weight 01/25/19 23:59 Weight 106.7 kg - Labs 01/24/19 06:53 01/24/19 06:53 - Attending Attestation I examined this patient and my medical decision-making was reviewed with the Resident Physician. I agree with the documented findings, disposition and treatment plan as described except to the extent set forth below.
[2019-01-25] MEDS: OXYCODONE Oral CONC 10 MG/0.5 ML ORAL.SYG SL PRN ×2 (10:45→18:05)
[2019-01-25 10:50] LABS: Hematocrit 37.1 % (37.5-50.1); Hemoglobin 12.9 g/dL (12.9-16.9); Mean Corpuscular HGB Conc 34.8 g/dL (31.6-35.5); Mean Corpuscular Hemoglobin 30.2 pg (28.0-33.3); Mean Corpuscular Volume 86.9 fL (83.0-100.0); Mean Platelet Volume 9.2 fL (9.4-12.4); Platelet Count 118 K/mcL (140-400); Red Blood Count 4.27 M/mcL (4.19-5.50); Red Cell Distribution Width 13.7 % (11.5-14.5)
[2019-01-25 11:05] LABS: Calcium 8.6 mg/dL (8.6-10.3); Potassium 3.5 mEq/L (3.5-5.1)
[2019-01-25 12:58] LABS: Albumin 3.4 g/dL (3.5-5.7); Albumin/Globulin Ratio 1.5 (1.1-2.2); Bilirubin,Direct 5.7 mg/dL (0.0-0.2); Bilirubin,Indirect 2.9 mg/dL (0.0-1.2); Bilirubin,Total 8.6 mg/dL (0.3-1.0); Globulin 2.3 g/dL (2.4-3.5); Total Protein 5.7 g/dL (6.4-8.9)
[2019-01-25] MEDS: hydrOXYzine pamoate 25 MG CAPSULE PO PRN (14:13)
--- NOTE | 2019-01-25 17:49 | Discharge Summary ---
Orders not resulted at time of discharge: Pending orders 01/23/19 05:53 Culture,Blood [BC] Stat Date of Encounter: 01/25/19 Time of Encounter: 11:00 - Discharge Diagnosis (1) Upper abdominal pain Priority: Primary Status: Acute (2) Elevated transaminase level Priority: Primary Status: Acute (3) Biliary sludge Priority: Primary Status: Acute (4) Elevated troponin Priority: Secondary Status: Acute (5) CAD (coronary artery disease) Priority: Secondary Status: Chronic Qualifiers: Coronary Disease-Associated Artery/Lesion type: [place] artery [place] vs. transplanted heart: [place] heart Associated angina: angina presence unspecified Qualified Code(s): I25.10 - Atherosclerotic heart disease of [place] coronary artery without angina pectoris (6) CKD (chronic kidney disease) Priority: Secondary Status: Chronic Qualifiers: Chronic kidney disease stage: stage 3 (moderate) Qualified Code(s): N18.3 - Chronic kidney disease, stage 3 (moderate) (7) HLD (hyperlipidemia) Priority: Secondary Status: Acute Qualifiers: Hyperlipidemia type: unspecified Qualified Code(s): E78.5 - Hyperlipidemia, unspecified (8) Mood disorder Priority: Secondary Status: Acute Hospital course: Patient is a 78-year-old male with past medical history significant for coronary arterial disease, CKD stage III, hypertension, hyperlipidemia and mood disorder who presents to the ER due to abdominal pain. Patient reports of a 24-48 hour history of epigastric pain which he describes as achy/squeezing with a severity of 8 out of 10 that was constant with no provoking or relieving factors. Patient denies any associated symptoms of nausea/vomiting/diarrhea. Patient does report being constipated. In the ER, patient was noted to have elevated transaminases. CT of the abdomen showed no acute intra-abdominal abnormalities but mild gallbladder distention was seen without radiodense gallstones. Liver ultrasound on 01/20/19 showed small amount of sludge in gallbladder. ER physician has consulted both general surgery and GI from the ER and will be following the patient for workup and management. During patients hospital stay his liver transaminases do not improve and testing inconclusive to rule in gallbladder pathology or to rule out liver pathology. Liver ultrasound on 01/20/19 showed small amount of sludge in gallbladder. CT of the abdomen showed no acute intra-abdominal abnormalities but mild gallbladder distention was seen without radiodense gallstones. MRCP showed distended gallbladder with no evidence of cholecystitis or choledocholithiasis; also noted was mildly dilated common bile duct and proximal pancreatic duct. HIDA scan showed lack of visualization of gallbladder upon initial and delayed imaging which favors biliary tract obstruction however this can also be seen with diffuse hepatocellular disease. As result patient will be transferred to [facility] to be seen and evaluated by customer management specialist to rule out liver etiology. [facility] has accepted the patient and once bed is available patient will be transferred. - Time Spent with Patient Total time spent providing and/or coordinating discharge services: - Discharge Medications Prescriptions: No Action DULoxetine [Cymbalta] 30 mg PO DAILY Lisinopril [Zestril] 5 mg PO DAILY Aspirin [Lo-Dose Aspirin EC] 81 mg PO DAILY Terazosin [Hytrin] 5 mg PO HS PARoxetine HCl [Paroxetine HCl] 10 mg PO DAILY Clopidogrel [Plavix] 75 mg PO DAILY Magnesium Oxide [Magnesium] 250 mg PO DAILY Nitroglycerin [Nitrostat] 0.4 mg SL AD PRN PRN Reason: Chest Pain Atorvastatin Calcium [Lipitor] 80 mg PO DAILY Metoprolol [Lopressor] 12.5 mg PO HS Home Medications: DULoxetine [Cymbalta] 30 mg PO DAILY 10/23/16 [History] Lisinopril [Zestril] 5 mg PO DAILY 10/23/16 [History] Aspirin [Lo-Dose Aspirin EC] 81 mg PO DAILY 08/16/18 [History] Terazosin [Hytrin] 5 mg PO HS 11/08/18 [History] PARoxetine HCl [Paroxetine HCl] 10 mg PO DAILY 11/13/18 [History] Clopidogrel [Plavix] 75 mg PO DAILY 12/02/18 [History] Magnesium Oxide [Magnesium] 250 mg PO DAILY 12/02/18 [History] Nitroglycerin [Nitrostat] 0.4 mg SL AD PRN 12/02/18 [History] Atorvastatin Calcium [Lipitor] 80 mg PO DAILY 01/19/19 [History] Metoprolol [Lopressor] 12.5 mg PO HS 01/22/19 [History] Allergies/Adverse Reactions: Allergy/AdvReac Type Severity Reaction Status Date / Time NSAIDS (Non-Steroidal AdvReac See Verified 01/22/19 13:48 Anti-Inflamma Comments Date of admission: 01/22/19 16:02 Primary care physician: Rubens Churchill MD Consults: 01/22/19 20:22 Consult to Cardiology [CONS] Routine Comment: Consulting Provider: Cardiology Migdalia Reason for Consult: Recent stent on ASA/plavix and need for ERCP and/or lap fanny. Surgeon wishes to hold ASA/plavix for surgery. Case d/w Dr. Kathleen. AM consult will be appreciated. Call Completed: Yes 01/24/19 06:01 Consult to [employer] [CONS] Routine Reason for SW Consult: Assess patient for possible home/rehabilitation needs for post-discharge planning. 01/24/19 08:10 Consult to Cardiology [CONS] Routine Comment: Consulting Provider: Cardiology Migdalia Reason for Consult: Elevated troponins/A. fib with recent cardiac stent Call Completed: Yes Consult to Gastroenterology [CONS] Routine Consulting Provider: Gastroenterology Migdalia Reason for Consult: Abdominal pain/Elevated transaminases Call Completed: Yes - Constitutional Vitals: Temp Pulse Resp BP Pulse Ox 97.8 F 76 15 143/75 92 01/25/19 15:27 01/25/19 15:27 01/25/19 15:27 01/25/19 15:27 01/25/19 15:27 Exam: Gen.: Nonacute distress, alert and oriented 3 ENT: Mucosal membranes moist Respiratory: Lungs are clear to auscultation bilaterally without any wheezing rhonchi or rales Cardiovascular: Normal S1 and S2 regular rate rhythm no murmurs rubs or gallops Abdomen: Generalized Tenderness to palpation Extremities: No lower extremity edema Skin: Normal color - Patient Status Disposition: Transfer Other Condition: Undetermined - Discharge Instructions Follow Up With: Rubens Churchill MD [Primary Care Provider] -
[2019-01-25 19:39] VITALS: BP 143/70
== END 2019-01-25 21:54 | disposition other institution (70) ==
LOC: 3ANU 13:38 → EMEROOARM 13:38 → SUATTDRO 16:02 → 3ANU 16:45
PROVIDERS: ADMIT Internal Medicine Nephrology; ATTEND Hospitalist